=== PATIENT | male | born 1985 | race Hispanic/Latino ===

== ENCOUNTER 2019-07-22 17:04 | Emergency (ER) | payer SELFPAY ==
[~2019-07-22 17:04] MED LIST: INSU100V3 SQ; LISI10TA7 PO; NIAC250C2 PO; NPH,100V SQ; POTA99TA21 PO; PSYL3.4P5 PO; VITA1CAP85 PO
[2019-07-22] MEDS ORDERED: KETOROLAC TROMETHAMINE 60 MG/2 ML VIAL ONE (17:54)
[2019-07-22] MEDS ORDERED: DEXAMETHASONE SOD PHOSPHATE 10MG/ML 1ML VIAL ONE (17:54)
== END 2019-07-22 18:21 | disposition home or self-care (01) ==
LOC: EDH 17:04
DX: J11.1 Influenza due to unidentified influenza virus with other respiratory manifestations (principal); E11.9 Type 2 diabetes mellitus without complications; I10 Essential (primary) hypertension; Z88.8 Allergy status to other drugs, medicaments and biological substances; Z90.49 Acquired absence of other specified parts of digestive tract
CPT/HCPCS: 71046; 96372 ×2; 99284; J1100; J1885

== ENCOUNTER 2020-02-19 18:13 | Inpatient (IN) | payer SELFPAY ==
[2020-02-19 18:52] LABS: BASOPHILS % (AUTO) 0.6 % (0.0-5.0); EOSINOPHILS % (AUTO) 3.5 % (0.0-8.0); HEMATOCRIT 37.4 % (42-54); LYMPHOCYTES % (AUTO) 19.4 % (21.0-51.0); MEAN CORPUSCULAR HEMOGLOBIN 28.6 pg (27.0-33.0); MEAN CORPUSCULAR VOLUME 84.2 fL (79-99); MONOCYTES % (AUTO) 9.7 % (3.0-13.0); NEUTROPHILS % (AUTO) 66.2 % (40.0-77.0); PLATELET COUNT (AUTO) 307 K/uL (130-400); RED BLOOD CELL COUNT(AUTO) 4.44 MIL/uL (4.50-6.20); RED CELL DISTRIBUTION WIDTH 12.4 % (11.0-15.5); WHITE BLOOD COUNT (AUTO) 8.9 K/uL (4.8-10.8)
[2020-02-19 18:53] LABS: APPEARANCE,URINE Clear (CLEAR); BILIRUBIN,URINE Negative (NEGATIVE); COLOR,URINE Yellow (YELLOW); GLUCOSE, URINE (UA) >=1000 mg/dL (NEGATIVE); KETONES,URINE Negative (NEGATIVE); LEUKOCYTE ESTERASE ,URINE Negative (NEGATIVE); NITRATE,URINE Negative (NEGATIVE); OCCULT BLOOD,URINE Small (NEGATIVE); PROTEIN,URINE >=1000 mg/dL (NEGATIVE); UROBILINOGEN,URINE 0.2 mg/dL (0.2-1.0)
[2020-02-19 19:03] LABS: CREATININE 1.8 mg/dL (0.5-1.5); POTASSIUM 3.9 mmol/L (3.5-5.1)
[2020-02-19 19:07] LABS: ALBUMIN 2.7 g/dL (3.5-5.0); BILIRUBIN,TOTAL 0.3 mg/dL (0.2-1.0); TOTAL PROTEIN, SERUM 6.9 g/dL (6.0-8.3)
[2020-02-19 19:21] LABS: SQUAMOUS EPITHELIAL CELL,UR Rare /HPF (0-2); WBC,URINE 0-1 /HPF (0-1)
[2020-02-19 19:22] LABS: BACTERIA,URINE Few /HPF (None Seen)
[2020-02-19] MEDS ORDERED: ONDANSETRON HCL 4 MG/2 ML VIAL IV PRN (21:15)
[2020-02-19] MEDS ORDERED: DiphenhydrAMINE HCL 50 MG/ML VIAL IV PRN (21:15)
[2020-02-19] MEDS ORDERED: NITROGLYCERIN 0.4 MG SL TAB SL PRN (21:15)
[2020-02-19] MEDS ORDERED: ACETAMINOPHEN 325 MG TAB PO PRN ×2 (21:15)
[2020-02-19] MEDS ORDERED: GUAIFENESIN-DM 200/20 MG 10 ML PO PRN (21:15)
[2020-02-19] MEDS ORDERED: ZOLPIDEM TARTRATE 5 MG TAB PO PRN (21:15)
[2020-02-19] MEDS ORDERED: MAG HYDROX/AL HYDROX/SIMETH ES 30 ML SUSP UDCUP PO PRN (21:15)
[2020-02-19] MEDS ORDERED: LACTULOSE 20 GM/30 ML UDCUP PO PRN (21:15)
[2020-02-19] MEDS ORDERED: MAG HYDROX/AL HYDROX/SIMETH 30 ML, LIDOCAINE HCL 2% VISCOUS 30 ML, DIPHENHYDRAMINE HCL ... PO PRN ×3 (21:15)
[2020-02-19] MEDS ORDERED: MORPHINE SULFATE 4 MG/1ML SYG IV PRN (21:15)
[2020-02-19] MEDS ORDERED: MORPHINE SULFATE 2 MG/ML 1ML SYG IV PRN (21:15)
[2020-02-19] MEDS ORDERED: SODIUM CHLORIDE 0.9% 1000ML 3,000 ML IV SCH (21:30)
[2020-02-19] MEDS ORDERED: FAMOTIDINE 20MG TAB 20 MG TAB ONE (22:17)
[2020-02-19] MEDS ORDERED: HEPARIN SODIUM 5000UNIT/ML 1ML VIAL ONE (22:17)
[2020-02-19 23:09] LABS: CREATINE KINASE, TOTAL 197 U/L (21-232); MYOGLOBIN 66 ng/mL (10-92); TROPONIN I < 0.04 ng/mL (0.00-0.06)
[2020-02-20 06:51] LABS: BASOPHILS % (AUTO) 0.5 % (0.0-5.0); EOSINOPHILS % (AUTO) 4.4 % (0.0-8.0); HEMATOCRIT 34.4 % (42-54); LYMPHOCYTES % (AUTO) 23.9 % (21.0-51.0); MEAN CORPUSCULAR HEMOGLOBIN 28.3 pg (27.0-33.0); MEAN CORPUSCULAR HGB CONC 33.1 g/dL (32.0-36.0); MEAN CORPUSCULAR VOLUME 85.4 fL (79-99); MONOCYTES % (AUTO) 10.4 % (3.0-13.0); NEUTROPHILS % (AUTO) 60.2 % (40.0-77.0); PLATELET COUNT (AUTO) 283 K/uL (130-400); RED BLOOD CELL COUNT(AUTO) 4.03 MIL/uL (4.50-6.20); RED CELL DISTRIBUTION WIDTH 12.6 % (11.0-15.5)
[2020-02-20 07:22] LABS: ALBUMIN 2.2 g/dL (3.5-5.0); BILIRUBIN,TOTAL 0.3 mg/dL (0.2-1.0); CREATININE 1.3 mg/dL (0.5-1.5); MAGNESIUM 2.4 mg/dL (1.80-2.40); PHOSPHORUS 3.3 mg/dL (2.5-4.9); POTASSIUM 3.7 mmol/L (3.5-5.1); TOTAL PROTEIN, SERUM 5.7 g/dL (6.0-8.3)
[2020-02-20 07:29] LABS: CREATINE KINASE, TOTAL 143 U/L (21-232); MYOGLOBIN 65 ng/mL (10-92); TROPONIN I < 0.04 ng/mL (0.00-0.06)
[2020-02-20] MEDS ORDERED: INSULIN LISPRO 100 UNIT/ML 3ML SQ SCH (07:30)
[2020-02-20] MEDS ORDERED: ASPIRIN 325 MG TABLET PO SCH (09:00)
[2020-02-20] MEDS ORDERED: FAMOTIDINE/PF 20 MG/2 ML VIAL IV SCH (09:00)
[2020-02-20] MEDS ORDERED: HEPARIN SODIUM 5000UNIT/ML 1ML VIAL SQ SCH (09:00)
[2020-02-20] MEDS ORDERED: IOHEXOL-350 75 ML VIAL IV ONE (10:06)
[2020-02-20] MEDS ORDERED: FAMOTIDINE 20MG TAB 20 MG TAB ONE (10:21)
[2020-02-20] MEDS ORDERED: ASPIRIN 325 MG TABLET ONE (10:21)
[2020-02-20] MEDS ORDERED: HEPARIN SODIUM 5000UNIT/ML 1ML VIAL ONE (10:22)
--- NOTE | 2020-02-20 14:59 | NUR ---
CASANDRA NOTE/IA UNSUCCESSFUL UNABLE TO MEET WITH PATIENT FACE TO FACE, NEXT OF KIN CALLED. NO ANSWER WITH MOTHER, MARGARITA GARCIA [phone], VOICEMAIL LEFT. CM TO FOLLOW UP. Addendum: 02/20/20 at 1501 by ETHAN MOORE RN CM Amended: Links added.
[2020-02-20] MEDS ORDERED: INSU100I47 SQ (15:11)
--- NOTE | 2020-02-20 15:40 | NUR ---
CASANDRA NOTE PER DANA SUTTON, CHARGE NURSE FOR ED, PATIENT TO BE DISCHARGED HOME, NO NEEDS VERBALIZED. Addendum: 02/20/20 at 1542 by ETHAN MOORE RN CM Amended: Links added.
[2020-02-20 15:48] LABS: CREATINE KINASE, TOTAL 136 U/L (21-232); MYOGLOBIN 58 ng/mL (10-92); TROPONIN I < 0.04 ng/mL (0.00-0.06)
== END 2020-02-20 17:10 | disposition home or self-care (01) | DRG 392 ==
LOC: EDH 18:13 → EDHIP 18:14 → UNDOADMIN 21:09 → EDHIP 21:09
PROVIDERS: ADMIT Internal Medicine; ATTEND Internal Medicine
DX: R10.2 Pelvic and perineal pain (principal); N17.9 Acute kidney failure, unspecified; E11.9 Type 2 diabetes mellitus without complications; E78.5 Hyperlipidemia, unspecified; I10 Essential (primary) hypertension; Z90.49 Acquired absence of other specified parts of digestive tract; Z88.8 Allergy status to other drugs, medicaments and biological substances; Z86.19 Personal history of other infectious and parasitic diseases; Z72.0 Tobacco use
CPT/HCPCS: 36415; 71045; 74178; 76770; 80053; 81001; 82550; 82948; 83690; 83735; 83874; 84100; 84484; 85025; 93005; 93306; 93356; G0378; J1644; J7030; Q9967

== ENCOUNTER 2021-03-01 22:59 | Emergency (ER) | payer OTHER ==
[~2021-03-01] VITALS: Ht 162.6 cm; Wt 122.5 kg
[~2021-03-01 22:59] MED LIST changes: +INSU100I47 SQ; -INSU100V3 SQ; +LISI10TA24 PO; -LISI10TA7 PO; -NIAC250C2 PO; +[UNRECOGNIZED DRUG - CODE] PO
[2021-03-01 23:15] LABS: BASOPHILS % (AUTO) 0.7 % (0.0-5.0); EOSINOPHILS % (AUTO) 3.3 % (0.0-8.0); HEMATOCRIT 38.6 % (42-54); MEAN CORPUSCULAR HEMOGLOBIN 28.4 pg (27.0-33.0); MEAN CORPUSCULAR HGB CONC 33.7 g/dL (32.0-36.0); MEAN CORPUSCULAR VOLUME 84.5 fL (79-99); MONOCYTES % (AUTO) 10.9 % (3.0-13.0); NEUTROPHILS % (AUTO) 63.4 % (40.0-77.0); PLATELET COUNT (AUTO) 321 K/uL (130-400); RED BLOOD CELL COUNT(AUTO) 4.57 MIL/uL (4.50-6.20); RED CELL DISTRIBUTION WIDTH 12.3 % (11.0-15.5); WHITE BLOOD COUNT (AUTO) 9.8 K/uL (4.8-10.8)
[2021-03-01 23:27] LABS: INR 0.9 (0.85-1.15); PROTHROMBIN TIME 9.9 SEC (9.6-11.6)
[2021-03-01 23:28] LABS: PARTIAL THROMBOPLASTIN TIME 25.7 SEC (26.3-35.5)
[2021-03-01 23:31] LABS: ALBUMIN 1.9 g/dL (3.5-5.0); BILIRUBIN,TOTAL 0.2 mg/dL (0.2-1.0); CREATININE 2.1 mg/dL (0.5-1.5); POTASSIUM 4.5 mmol/L (3.5-5.1); TOTAL PROTEIN, SERUM 5.9 g/dL (6.0-8.3)
[2021-03-01 23:41] LABS: B-TYPE NATRIURETIC PEPTIDE 16 pg/mL (0-100)
[2021-03-02] MEDS ORDERED: 0.9%NACL 1000ML 1,000 ML IV ONE (01:00)
[2021-03-02] MEDS ORDERED: INSULIN HUMULIN R 100 UNIT/ML 3ML IV ONE (01:00)
[2021-03-02 01:34] LABS: APPEARANCE,URINE Clear (CLEAR); BILIRUBIN,URINE Negative (NEGATIVE); COLOR,URINE Yellow (YELLOW); GLUCOSE, URINE (UA) >=1000 mg/dL (NEGATIVE); KETONES,URINE Negative (NEGATIVE); LEUKOCYTE ESTERASE ,URINE Negative (NEGATIVE); NITRATE,URINE Negative (NEGATIVE); OCCULT BLOOD,URINE Small (NEGATIVE); PROTEIN,URINE >=1000 mg/dL (NEGATIVE); UROBILINOGEN,URINE 0.2 mg/dL (0.2-1.0)
[2021-03-02 01:43] LABS: BACTERIA,URINE None Seen /HPF (None Seen); WBC,URINE 0-1 /HPF (0-1); YEAST,URINE BUDDING None Seen /HPF (None Seen)
[2021-03-02 01:44] LABS: MUCUS,URINE Rare LPF (None Seen); SQUAMOUS EPITHELIAL CELL,UR Few /HPF (0-2)
[2021-03-02] MEDS ORDERED: AMOXICILLIN 500 MG CAPSULE PO ONE (02:00)
[2021-03-02 02:14] VITALS: BP 177/78
[2021-03-02 03:09] VITALS: BP 150/80
[2021-03-02] MEDS ORDERED: AMOX500C2 PO (04:34)
== END 2021-03-02 05:04 | disposition home or self-care (01) ==
LOC: EDH 22:59
DX: J02.0 Streptococcal pharyngitis (principal); E11.65 Type 2 diabetes mellitus with hyperglycemia; Z20.822 Contact with and (suspected) exposure to COVID-19; E78.00 Pure hypercholesterolemia, unspecified; I10 Essential (primary) hypertension; Z79.4 Long term (current) use of insulin; Z79.899 Other long term (current) drug therapy
CPT/HCPCS: 36415; 71045; 80053; 81001; 82550; 82948; 83880; 84484; 85025; 85610; 85730; 87635; 87804 ×2; 87880; 93005; 96361; 96374; 99285; C9803; J1815; J7030

== ENCOUNTER 2024-09-26 10:23 | Inpatient (IN) | payer BC ==
[~2024-09-26] VITALS: Ht 167.6 cm; Wt 121.7 kg
[2024-09-26] VITALS (15 sets, daily range): BP systolic 128–181; BP diastolic 58–89; PULSE 73–94; RESP 14–20; TEMP 98–98.1; O2SAT 97
[~2024-09-26 10:23] MED LIST changes: +BENZ200C53 PO; +CALC0.253 PO; +CARV12.511 PO; +CHOL100020 PO; +FERR210T PO; +FOLI0.8T22 PO; +HYDR25TA67 PO; +INSLAN SQ; +LEVO112C4 PO; -LISI10TA24 PO; +NIFE-40 PO; -NPH,100V SQ; -POTA99TA21 PO; +PRED5DRO25 OD; -PSYL3.4P5 PO; +ROSU40TA88 PO; +SUCR500T PO; +VITA-348 PO; -VITA1CAP85 PO; -[UNRECOGNIZED DRUG - CODE] PO
--- NOTE | 2024-09-26 10:29 | ERN ---
ED Note History of Present Illness Stated Complaint: SOB Chief Complaint: Shortness of Breath Time Seen by MD: 10:26 Dictation: PATIENT IS A 39-YEAR-OLD HEMODIALYSIS PATIENT COMING IN TODAY WITH SHORTNESS A BREATH AND GENERALIZED BODY WEAKNESS ONSET TWO DAYS AGO. HE STATES HE HAD HEMODIALYSIS YESTERDAY. STATES THEY PULLED OFF5 L HOWEVER HE IS STILL FEELING SHORT OF BREATH AND WEAK. NO CHEST PAIN NO BACK PAIN. LEFT FOREARM FISTULA WITH GOOD THRILL AND BRUIT NOTED. NO FEVER NO CHILLS. NEPHROLOGISTS HIS DOCTOR ASHLEIGH Allergies: Coded Allergies: atorvastatin (Verified Allergy, Unknown, 07/22/16) metformin (Verified Allergy, Unknown, 07/22/16) Home Meds Reported Medications Prednisolone Acetate/Pf (Prednisolone Acet 1% Eye Drop) 1 % Drops.susp, 1 DROP OD BID for 30 Days, #5 ML 0 Refills 06/05/24 Cholecalciferol (Vitamin D3) (Vitamin D3) 25 Mcg (1000 Unit) Tablet, 1 TAB PO DAILY for 30 Days, #30 TAB 0 Refills 06/05/24 Vitamin E Mixed (Vitamin E) 400 Unit Capsule, 400 UNIT PO DAILY, CAP 06/05/24 Ferric Citrate (Ferric Citrate) 210 Mg Iron Tablet, 1 TAB PO TIDMEALS for 30 Days, #180 TAB 0 Refills 06/05/24 Levothyroxine Sodium (Levothyroxine) 112 Mcg Capsule, 1 CAP PO DAILY for 30 Days, #30 CAP 0 Refills 06/05/24 Benzonatate (Benzonatate) 200 Mg Capsule, 100 MG PO DAILY PRN for COUGH/COLD SYMPTOMS, CAP 06/05/24 Carvedilol (Carvedilol) 12.5 Mg Tablet, 1 TAB PO BID for 30 Days, #60 TAB 0 Refills 06/05/24 Hydralazine HCl (Hydralazine HCl) 25 Mg Tablet, 1 TAB PO TID for 30 Days, #90 TAB 0 Refills 06/05/24 Nifedipine (Nifedipine ER) 30 Mg Tab.er.24, 1 TAB PO DAILY for 30 Days, #30 TAB 0 Refills 06/05/24 Sucroferric Oxyhydroxide (Velphoro) 500 Mg Iron Tab.chew, 1 TAB PO TID for 30 Days, #90 TAB 0 Refills 06/05/24 Folic Acid/Vitamin B Comp W-C (Aura-Kaz Tablet) 0.8 Mg Tablet, 1 TAB PO DAILY for 30 Days, #30 TAB 0 Refills 06/05/24 Calcitriol (Calcitriol) 0.25 Mcg Capsule, 0.25 MCG PO DAILY, CAP 06/05/24 Rosuvastatin Calcium (Rosuvastatin Calcium) 40 Mg Tablet, 1 TAB PO HS for high cholesterol for 30 Days, #30 TAB 0 Refills 06/05/24 Insulin Glargine,Hum.rec.anlog (Lantus) 100 Unit/Ml Inj, 15 UNITS SQ HS, ML 06/05/24 Insulin Glargine,Hum.rec.anlog (Lantus) 100 Unit/Ml Inj, 15 UNITS SQ NOON, ML 06/05/24 Insulin Aspart (Insulin Aspart Flexpen) 100 Unit/Ml (3 Ml) Insuln.pen, 30 UNIT SQ TIDAC, SYRINGE 06/05/24 Past Medical History Past Medical History: Renal Disese, Renal Failure Surgical History: Other RN Note Reviewed/Agreed w/PFSH: Yes Review of System Dictation CONSTITUTIONAL: NEGATIVE EXCEPT FOR HPI WEAK HEAD/FACE: NEGATIVE EXCEPT FOR HPI EENT: NEGATIVE EXCEPT FOR HPI RESPIRATORY: NEGATIVE EXCEPT FOR HPI SOB GASTROINTESTINAL/ABDOMINAL: NEGATIVE EXCEPT FOR HPI GENITOURINARY: NEGATIVE EXCEPT FOR HPI MUSCULOSKELETAL: NEGATIVE EXCEPT FOR HPI INTEGUMENTARY: NEGATIVE EXCEPT FOR HPI NEUROLOGICAL/PSYCH: NEGATIVE EXCEPT FOR HPI HEMATOLOGIC/LYMPHATIC: NEGATIVE EXCEPT FOR HPI ALL SYSTEMS NEGATIVE, EXCEPT NOTED ABOVE. 13 POINT REVIEW OF SYSTEMS ASSESSED AND ALL NEGATIVE EXCEPT FOR ABOVE. Initial Vital Sign VS Vital Signs Date Time Temp Pulse Resp B/P (MAP) Pulse Ox O2 Delivery O2 Flow Rate FiO2 09/26/24 10:26 98.1 81 20 114/64 97 0 09/26/24 12:02 Room Air* 21 Physical Exam Dictation VITAL SIGNS REVIEWED GENERAL APPEARANCE: ALERT, ORIENTED X 3, NO ACUTE DISTRESS, WELL DEVELOPED, NOURISHED. MORBID OBESITY HEAD AND FACE: NON-TRAUMATIC. EYES: PERRL, PINK CONJUNCTIVAS, EYELID NO TRAUMA, ANTERIOR CHAMBER WITH ARCUS SENILIS. EARS: PINNAS INTACT AND NO SIGNS OF TRAUMA OR ERYTHEMA EAR CANALS CLEAR AND NO DISCHARGE TM NO ERYTHEMA NOSE: NO DISCHARGE, NO BLEEDING. OROPHARYNX: MOUTH NORMAL, TONGUE PINK, PHARYNX CLEAR,NO ERYTHEMA, TONSILS NO EXUDATES, NO ABSCESSES NOTED, MUCOUS MEMBRANE MOIST NECK: SUPPLE, NON-TENDER, NO THYROMEGALY, NO MASSES, NO JVD, NO BRUITS BREAST:DEFERRED CHEST:NO TENDERNESS, NO CREPITUS, NO PARADOXICAL MOVEMENT, NO RETRACTIONS LUNGS:CLEAR, WELL-VENTILATED, SYMMETRIC, NO RALES, NO WHEEZING, NO RHONCHI, NO STRIDOR, GOOD BREATH SOUNDS BILATERALLY HEART: REGULAR RATE, REGULAR RHYTHM, NO MURMUR, NO GALLOPS VASCULAR: NO PERIPHERAL EDEMA, LEFT FOREARM FISTULA WITH GOOD THRILL AND BRUIT NOTED ABDOMEN: SOFT, POSITIVE BOWEL SOUNDS, NONDISTENDED, NO GUARDING, NONTENDER, NO REBOUND, NO MASSES NO HEPATOMEGALY, NO SPLENOMEGALY, NO HEART'S SIGN, NO HERNIAS. RECTAL: DEFERRED GENITAL: DEFERRED NEUROLOGICAL: NORMAL SPEECH, MOTOR FUNCTION INTACT, SENSORY FUNCTION INTACT MUSCULOSKELETAL: NECK NONTENDER, FULL RANGE OF MOTION, BACK NONTENDER, FULL RANGE OF MOTION, EXTREMITIES: NONTENDER, FULL RANGE OF MOTION SKIN: COLOR PINK, DRY, NO TURGOR, NO RASH, NO LACERATIONS, NO ABRASIONS, NO CONTUSIONS. LYMPHATIC: DEFERRED Results (Laboratory/Radiology) Laboratory/Radiology Laboratory Tests Test 09/26/24 10:42 White Blood Count 9.1 K/uL (4.8-10.8) Red Blood Count 3.37 MIL/uL (4.50-6.20) L Hemoglobin 10.3 g/dL (14.0-18.0) L Hematocrit 31.6 % (42-54) L Mean Corpuscular Volume 93.8 fL (79-99) Mean Corpuscular Hemoglobin 30.6 pg (27.0-33.0) Mean Corpuscular Hemoglobin Concent 32.6 g/dL (32.0-36.0) Red Cell Distribution Width 13.5 % (11.0-15.5) Platelet Count 256 K/uL (130-400) Mean Platelet Volume 10.8 fL (7.5-10.5) H Immature Granulocyte % (Auto) 0.6 % (0-1) Neutrophils (%) (Auto) 74.5 % (40.0-77.0) Lymphocytes (%) (Auto) 10.5 % (21.0-51.0) L Monocytes (%) (Auto) 10.3 % (3.0-13.0) Eosinophils (%) (Auto) 3.5 % (0.0-8.0) Basophils (%) (Auto) 0.6 % (0.0-5.0) Neutrophils # (Auto) 6.8 K/uL (1.8-7.7) Lymphocytes # (Auto) 1.0 K/uL (1.0-4.8) Monocytes # (Auto) 0.9 K/uL (0.1-1.0) Eosinophils # (Auto) 0.32 K/uL (0.00-0.70) Basophils # (Auto) 0.05 K/uL (0.00-0.20) Absolute Immature Granulocyte (auto 0.05 K/uL (0-1) Nucleated Red Blood Cells 0.0 % (0.0-0.19) Sodium Level 134 mmol/L (136-145) L Potassium Level 5.3 mmol/L (3.5-5.1) H Chloride Level 96 mmol/L (101-111) L Carbon Dioxide Level 28 mmol/L (21-32) Blood Urea Nitrogen 48 mg/dL (7-18) H Creatinine 8.8 mg/dL (0.5-1.3) *H Glomerular Filtration Rate Calc 7 mL/min (>90) Random Glucose 253 mg/dL (70-105) H Total Calcium 8.1 mg/dL (8.5-10.1) L Troponin I High Sensitivity 654 ng/L (4-75) *H Labs Reviewed?: Yes EKG Comment: EKG SINUS RHYTHM/HEART RATE 75/RIGHT AXIS DEVIATION/NONSPECIFIC ST CHANGES ED Course ED Course Orders Procedure Category Date Status Time Cbc With Differential LAB 09/26/24 Complete 10:27 Troponin I High LAB 09/26/24 Complete Sensitivity 10:27 12 Lead Ekg Tracing- EKG 09/26/24 Complete Technical 10:27 Chest 1vw RAD 09/26/24 Resulted 10:27 Basic Metabolic Panel LAB 09/26/24 Complete 10:27 Aspirin 325mg Tab PHA 09/26/24 Logged (Aspirin 325mg Tab) 12:00 Sodium Polystyr Sulf PHA 09/26/24 Logged 15gm (Kayexalate 15 12:00 Albuterol 0.083% PHA 09/26/24 Logged 2.5mg/3ml (Proventil 12:00 Nephrology Consult CONPHYSVC 09/26/24 Transmitted 11:53 Edm Admit Bridge Order ADM 09/26/24 Transmitted 11:55 Current Medications Medications (Trade) Dose Ordered Sig/Kay Route PRN Reason Start Time Stop Time Status Last Admin Dose Admin Albuterol Sulfate (Proventil 0.083% 2.5mg/3ml) 5 mg ONCE ONCE IH 09/26/24 12:00 09/26/24 12:01 UNV Aspirin (Aspirin 325mg Tab) 325 mg ONCE ONCE PO 09/26/24 12:00 09/26/24 12:01 UNV Sodium Polystyrene Sulfonate (kayEXALate 15 GM/60 ML) 15 gm ONCE ONCE PO 09/26/24 12:00 09/26/24 12:01 UNV Vital Signs Date Time Temp Pulse Resp B/P (MAP) Pulse Ox O2 Delivery O2 Flow Rate FiO2 09/26/24 12:02 98.1 81 20 164/64 97 Room Air* 0 21 09/26/24 10:26 98.1 81 20 114/64 97 0 1145/EKG SHOWS ST CHANGES IN ANTERIOR LEADS TWO AND THREE. TROPONIN IS 574.0 REVIEW OF LITERATURE SHOWS HE HAS HAD NO TROPONINS THAT HIGH IN THE PAST. WE WILL ADMINISTER ASPIRIN, PATIENT DENIES ANY CHEST PAIN AT THIS TIME STATES HE JUST FEELS WEAK. WE WILL PAGED FOR MILD HYPERKALEMIA AND FLUID OVERLOAD, WE WILL HAVE PATIENT ADMITTED TO THE HOSPITAL. 1155/SPOKE WITH AND REVIEWED EKG CHEST X-RAY LABS AND INTERVENTIONS FOR HYPERKALEMIA. ADDITIONALLY HE IS AWARE I HAVE PAGED , FOR CONSULTATION AND ADDITIONAL HEMODIALYSIS DUE TO FLUID OVERLOAD. HEART Score Response (Comments) Value EKG: Repolarization changes 1 Risk Factors: 3+ risk factors (+2) 2 Initial Troponin: >3x Normal Limit (+2) 2 Total 5 Medical Decision Making MDM MDM: DIFFERENTIAL DIAGNOSIS: ACS/AMI/FLUID OVERLOAD/ELECTROLYTE IMBALANCE/DEHYDRATION/PNEUMONIA/BRONCHITIS/PLEURAL EFFUSION RATIONALE: TESTS CONSIDERED AND ORDERED SECONDARY TO SHARED DECISION MAKING INCLUDE: LABS, ECG AND RADIOLOGY PREVIOUS OUTSIDE RECORDS REVIEWED: OLD ER VISITS. REVIEWED RISK OF COMPLICATION AND/OR MORBIDITY OR MORTALITY OF PATIENT MANAGEMENT: MODERATE MEDICATIONS-PER MEDICATION RECONCILIATION NEED FOR HOSPITALIZATION: PATIENT DOES MEET CRITERIA FOR HOSPITALIZATION. PATIENT WILL NEED ADDITIONAL DIALYSIS FOR FLUID OVERLOAD AND CARDIAC CONSULTATION SECONDARY TO ELEVATED TROPONIN ABNORMAL EKG NEED FOR EMERGENCY MAJOR/MINOR SURGERY: NO THERE ARE NO SOCIAL CONCERNS WITH THIS PATIENT. PRESCRIPTION DRUG MANAGEMENT PRESCRIPTIONS WILL INCLUDE SYMPTOMATIC CARE PATIENT'S PRIOR EXTERNAL MEDICAL RECORDS FROM OTHER ER VISITS WERE REVIEWED BY ME INDICATED. PRIOR TESTING AND RESULTS FROM PREVIOUS VISITS WERE REVIEWED. PRIOR TESTS WERE TAKEN INTO ACCOUNT WITH MEDICAL DECISION MAKING AND RESOURCE UTILIZATION, INDEPENDENT HISTORIAN/HISTORIANS WERE USED TO OBTAIN COMPLETE MEDICAL HISTORY. I INDEPENDENTLY INTERPRETED THE TEST THAT WERE PERFORMED, RESULTS WERE REVIEWED BY ME AND CONSIDERED FINDINGS ON RADIOLOGY IF ORDERED. MEDICAL MANAGEMENT AND EXAMINATION INTERPRETATION DISCUSSIONS WERE HAD BY ME WITH OTHER QUALIFIED HEALTHCARE PROFESSIONALS INDICATED FOR THE PATIENT'S CARE. DX & DISP Disposition: Inpatient Decision to Admit Time: 11:47 Departure Impression: Primary Impression: Fluid overload Additional Impressions: Hyperkalemia, Elevated troponin level not due to acute coronary syndrome, Anemia of chronic kidney failure, Uncontrolled diabetes mellitus Critical Time: 30 minutes (Critical Care Procedure NoteAuthorized and Performed by: meTotal critical care time: Approximately 36 minutesDue to a high probability of clinically significant, life threatening deterioration, the patient required my highest level of preparedness to intervene emergently and I personally spent this critical care time directly and personally managing the patient. This critical care time included obtaining a history; examining the patient; pulse oximetry; ordering and review of studies; arranging urgent treatment with development of a management plan; evaluation of patient's response to treatment; frequent reassessment; and, discussions with other providers.This critical care time was performed to assess and manage the high probability of imminent, life-threatening deterioration that could result in multi-organ failure. It was exclusive of separately billable procedures and treating other patients and teaching time.Please see MDM section and the rest of the note for further information on patient assessment and treatment.) Condition: Stable Referrals: TARAS PAINTER DO (PCP) Time of Disposition: 11:47 I have reviewed the case, and I agree with, Diagnosis and Plan I performed a substantive portion of the visit. I have reviewed and personally made and approve the management plan that is documented in the notes by myself with KEITH/resident. I acknowledged full responsibility for the patient's management plan. TOMA FINNEY NP Sep 26, 2024 10:29 CALEB BOWENS DO Sep 26, 2024 12:04
--- NOTE | 2024-09-26 10:52 | EKG ---
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
[2024-09-26 10:57] LABS: BASOPHILS # (AUTO) 0.05 K/uL (0.00-0.20); BASOPHILS % (AUTO) 0.6 % (0.0-5.0); EOSINOPHILS # (AUTO) 0.32 K/uL (0.00-0.70); EOSINOPHILS % (AUTO) 3.5 % (0.0-8.0); HEMATOCRIT 31.6 % (42-54); IMMATURE GRANULOCYTE ABSOLUTE 0.05 K/uL (0-1); LYMPHOCYTES % (AUTO) 10.5 % (21.0-51.0); MEAN CORPUSCULAR HEMOGLOBIN 30.6 pg (27.0-33.0); MEAN CORPUSCULAR HGB CONC 32.6 g/dL (32.0-36.0); MEAN CORPUSCULAR VOLUME 93.8 fL (79-99); MONOCYTES # (AUTO) 0.9 K/uL (0.1-1.0); MONOCYTES % (AUTO) 10.3 % (3.0-13.0); NEUTROPHILS # (AUTO) 6.8 K/uL (1.8-7.7); NEUTROPHILS % (AUTO) 74.5 % (40.0-77.0); PLATELET COUNT (AUTO) 256 K/uL (130-400); RED BLOOD CELL COUNT(AUTO) 3.37 MIL/uL (4.50-6.20); RED CELL DISTRIBUTION WIDTH 13.5 % (11.0-15.5); WHITE BLOOD COUNT (AUTO) 9.1 K/uL (4.8-10.8)
[2024-09-26 11:05] LABS: POTASSIUM 5.3 mmol/L (3.5-5.1)
[2024-09-26 11:17] LABS: CREATININE 8.8 mg/dL (0.5-1.3)
--- NOTE | 2024-09-26 11:42 | HMCIMG ---
Exam Type: CHEST 1VW Clinical Information: SHORTNESS A BREATH. HISTORY OF ESRD WITH HEMODIALYSIS Comparison: None Findings: The lungs are clear of infiltrates. The heart is normal in size. The bony and soft tissue structures of the chest are unremarkable. Impression: Clear lungs.
[2024-09-26] MEDS ORDERED: acetaMINOPHEN 500 MG TABLET PO PRN (12:30)
[2024-09-26] MEDS ORDERED: hydrALAZine 20MG/ML VIAL IV PRN (12:30)
--- NOTE | 2024-09-26 12:45 | HP ---
[facility] PH[facility] Date of Service: Sep 26, 2024 Time of Service: 12:36 HISTORY OF PRESENT ILLNESS: DATE OF SERVICE: 09/26/2024 This is a 39-year-old male with past medical history of hypertension, hyperlipidemia, ESRD, diabetes mellitus type 2 presented to the hospital secondary to generalized fatigue, shortness of breath. Patient states after getting dialysis yesterday he has been feeling short of breath. He denies any cough, fevers, chills, abdominal pain, arthralgia, myalgia. He also complains of constipation with abdominal distention. He had one BM yesterday which was small amount. He has been taking lactulose at. Additionally complained of pain in the bilateral flank area which he felt was secondary to kidney stones. He denies any active chest pain, paresthesias, jaw pain, neck pain. He stated that he saw Dr. Gamble around a month ago and had a possible heart catheterization which per patient was noted to be unremarkable. He denied having any stents placed during the procedure. Denied any falls, syncopal episode. He is fairly active at home and has been ambulating. Denies any chest pain with exertion and denied any history of blood clots. Labs were remarkable for white count of 9.1, hemoglobin was 10.3, platelet count was 256 K co, sodium was 134, potassium was 5.3, creatinine was 8.8, troponin was noted to be 654 Chest x-ray showed no acute infiltrates. REVIEW OF SYSTEMS CONSTITUTIONAL: Denies fevers, chills, or night sweats. No unintentional weight loss reported. Positive for generalized fatigue NEUROLOGICAL: Denies headache, amaurosis fugax, motor weakness, sensory deficit, vertigo/spinning sensation, gait abnormalities, or tremors. ENT: No hearing loss, otalgia, otorrhea, rhinitis, rhinorrhea, hoarseness, or sore throat. CARDIOVASCULAR: Denies any exertional angina, dyspnea on exertion, orthopnea, paroxysmal nocturnal dyspnea, palpitations, life-threatening arrhythmias, claudication. PULMONARY: Positive for shortness of breath. Denied any cough, sputum producti on. SLEEP: Denies morning headaches, daytime somnolence or napping. Denies difficulty falling asleep, staying asleep, waking from sleep. Denies knowledge of snoring. GASTROINTESTINAL: Denies any type of dysphagia to either liquids or solids. Denies nausea, vomiting, pyrosis, early satiety, abdominal pain, diarrhea, constipation, or changes in stool consistency or caliber. Denies coffee-ground emesis, hematemesis, hematochezia, or melanotic stools. GENITOURINARY: Denies frequency, urgency, nocturia, hematuria or incontinence (Storage/Irritative symptoms.) Low urinary stream, straining to void, urinary intermittency or hesitancy, splitting of the voiding stream, terminal dribbling. ENDOCRINOLOGIC: Denies polyuria, polydipsia, polyphagia or heat/cold intolerances. HEMATOLOGIC: Denies thrombophilia/previous clots, or coagulopathy/bleeding disorders. ONCOLOGIC: Denies personal history of malignancy. DERMATOLOGIC: Denies rashes or pruritus. PSYCHIATRIC: Denies any suicidal or homicidal ideation. Denies hallucinations. PAST MEDICAL HISTORY: Hypertension, hyperlipidemia, ESRD, diabetes mellitus type 2 PAST SURGICAL HISTORY: History of appendectomy, history of PermCath placement, history of AV access PAST SOCIAL HISTORY: Denied any smoking, alcohol, drug use FAMILY HISTORY: Denied any pertinent family history Coded Allergies: atorvastatin (Verified Allergy, Unknown, 07/22/16) metformin (Verified Allergy, Unknown, 07/22/16) PHYSICAL EXAM GENERAL APPEARANCE: The patient is awake, alert, and oriented, in no acute cardiopulmonary distress. NEUROLOGICAL: Cranial nerves II-XII grossly intact. Motor is 5/5 in bilateral upper and lower extremities proximal to distal. No sensory deficits. HEENT: Face is symmetric. Pupils are equal and reactive. Extraocular movements are intact. NECK: Supple. No JVD. No thyromegaly. No submental, submandibular, pre- /postauricular, occipital or supraclavicular lymphadenopathy. CHEST: Normal chest expansion. No Telemetry. LUNGS: Absence of any rales, rhonchi or any wheezing. CARDIOVASCULAR: Regular. S1 and S2 normal. No appreciable rubs, murmurs or gallops. ABDOMEN: Soft, nontender, and mildly distended. There is no rebound, voluntary guarding, or rigidity. : Deferred. No Lopez. EXTREMITIES: 1+ pitting edema in the lower extremity and not cyanotic. No clubbing. Good capillary refill. SKIN: No skin breakdown. Vital Sign (Last 24 Hours) 09/26/24 12:02 Temp 98.1 Pulse 81 Resp 20 B/P (MAP) 164/64 Pulse Ox 97 O2 Delivery Room Air* O2 Flow Rate 0 FiO2 21 LABS: Laboratory: Test 09/26/24 10:42 Range/Units White Blood Count 9.1 4.8-10.8 K/uL Red Blood Count 3.37 L 4.50-6.20 MIL/uL Hemoglobin 10.3 L 14.0-18.0 g/dL Hematocrit 31.6 L 42-54 % Mean Corpuscular Volume 93.8 79-99 fL Mean Corpuscular Hemoglobin 30.6 27.0-33.0 pg Mean Corpuscular Hemoglobin Concent 32.6 32.0-36.0 g/dL Red Cell Distribution Width 13.5 11.0-15.5 % Platelet Count 256 130-400 K/uL Mean Platelet Volume 10.8 H 7.5-10.5 fL Immature Granulocyte % (Auto) 0.6 0-1 % Neutrophils (%) (Auto) 74.5 40.0-77.0 % Lymphocytes (%) (Auto) 10.5 L 21.0-51.0 % Monocytes (%) (Auto) 10.3 3.0-13.0 % Eosinophils (%) (Auto) 3.5 0.0-8.0 % Basophils (%) (Auto) 0.6 0.0-5.0 % Neutrophils # (Auto) 6.8 1.8-7.7 K/uL Lymphocytes # (Auto) 1.0 1.0-4.8 K/uL Monocytes # (Auto) 0.9 0.1-1.0 K/uL Eosinophils # (Auto) 0.32 0.00-0.70 K/uL Basophils # (Auto) 0.05 0.00-0.20 K/uL Absolute Immature Granulocyte (auto 0.05 0-1 K/uL Nucleated Red Blood Cells 0.0 0.0-0.19 % Sodium Level 134 L 136-145 mmol/L Potassium Level 5.3 H 3.5-5.1 mmol/L Chloride Level 96 L 101-111 mmol/L Carbon Dioxide Level 28 21-32 mmol/L Blood Urea Nitrogen 48 H 7-18 mg/dL Creatinine 8.8 *H 0.5-1.3 mg/dL Glomerular Filtration Rate Calc 7 >90 mL/min Random Glucose 253 H 70-105 mg/dL Total Calcium 8.1 L 8.5-10.1 mg/dL Troponin I High Sensitivity 654 *H 4-75 ng/L Current Medications Medications (Trade) Dose Ordered Sig/Kay Route PRN Reason Start Time Stop Time Status Last Admin Dose Admin Acetaminophen (TYLenol 500MG TAB) 500 mg Q6H PRN PO MILD PAIN (1-3) 09/26/24 12:30 10/26/24 12:29 Aspirin (Aspirin 81mg Chew Tab) 81 mg DAILY PO 09/27/24 09:00 10/27/24 08:59 Heparin Sodium (Porcine) (HEParin 5,000 UNIT VIAL) 5,000 unit Q12H SQ 09/26/24 21:00 10/26/24 20:59 Hydralazine HCl (APRESOLine 20MG INJ) 10 mg Q6H PRN IV ADMINISTER FOR SBP > 180 09/26/24 12:30 10/26/24 12:29 DIAGNOSTICS / RADIOLOGY: [ ] ASSESSMENT: Hyperkalemia Troponin elevation likely type 2 IA from demand mismatch and ESRD status Shortness of breaths differential secondary to volume overload from ESRD ESRD on HD MWF Hypertension Hyperlipidemia Diabetes mellitus type 2 with associated hyperglycemia Obesity PLAN: - patient to be admitted to PCCU -in reference to shortness of breadth. Patient is currently saturating 97% on room air. We will closely observe. We will check COVID and flu. We will request consultation with Nephrology for evaluation of dialysis. -in reference to troponin elevation. We will trend troponins q.6 hours. Obtain echocardiogram. We will request consultation with Cardiology. We will request records from Dr. Tye nath. Obtain echocardiogram -obtain home medications which will be reconciled once available -patient will be started on sliding scale insulin -check TSH, A1c, CK, BNP -further orders per hospitalization course Advanced Care Planning Which of the following were discussed: Hospice care: Yes __ No _x_ Therapeutic options: Yes __ No __ Advance directives: Yes __ No __ Other discussions: Pt is full code Discussed with who?: patient (Patient, family or surrogates) Voluntary nature of this service was explained to the patient? Yes _x_ No __ Amount of time spent: 25 minutes NIKI Lau MD, MD Sep 26, 2024 12:45
[2024-09-26] MEDS: ASPIRIN 325MG TAB PO ONE (12:48)
[2024-09-26] MEDS: kayEXALate 15GM/60ML PO ONE (12:48)
[2024-09-26] MEDS: ALBUTEROL 0.083% 2.5 MG/3 ML INH IH ONE (13:16)
[2024-09-26 13:21] LABS: SARS-CoV-2, RNA, NAAT NEGATIVE SARS CoV-2 (NEGATIVE)
[2024-09-26 13:24] LABS: INFLUENZA TYPE A Negative For Type A (NEGATIVE); INFLUENZA TYPE B Negative For Type B (NEGATIVE)
[2024-09-26 13:25] LABS: HEMOGLOBIN A1C 9.4 % (4.0-6.0)
[2024-09-26 13:27] LABS: ALBUMIN 3.2 g/dL (3.5-5.0); BILIRUBIN,DIRECT 0.1 mg/dL (0.0-0.3); BILIRUBIN,TOTAL 0.5 mg/dL (0.2-1.0); TOTAL PROTEIN, SERUM 7.6 g/dL (6.0-8.3)
--- NOTE | 2024-09-26 13:28 | HMCIMG ---
Exam Type: CT ABDOMEN/PELVIS W/O CONTRAST Clinical Information: BIlateral flank pain, constipation Comparison: None CT Dose Index (CTDI): 10.20 mGy Dose Length Product (DLP): 530.00 total mGy-cm PROTOCOL: Routine noncontrast helical scanning of the abdomen and pelvis was performed at 5mm collimation. Findings: No evidence of nephro or ureterolithiasis is found. No hydronephrosis or ureteral dilatation is seen. The lung bases are clear. The stomach is unremarkable. It shows no wall thickening. No gross ulceration is seen. It is not overly distended. There are no surrounding inflammatory changes. No wall lesions are identified to suggest cancer. The spleen is unremarkable. It is not enlarged. The pancreas shows normal anatomy. It is not fatty replaced. It shows no lesions. The pancreatic duct is not dilated. The gallbladder is unremarkable. It shows no cholelithiasis. The gallbladder wall is normal in thickness. There is no pericholecystic fluid. The is no acute or chronic inflammation noted. The adrenal glands are unremarkable. There is no enlargement. No lesions are noted. The liver is unremarkable. It shows no focal masses. The appendix is unremarkable. It shows no evidence of inflammation. No appendicolith is seen. The small bowel is unremarkable. There is no evidence of dilatation to suggest obstruction. No evidence of adynamic ileus is seen. There is no small bowel wall thickening to suggest enteritis. The colon is unremarkable. The urinary bladder is unremarkable. There is no wall thickening to suggest tumor or inflammation. There are no intraluminal calculi. There are no diverticula. There is no evidence of chronic bladder outlet obstruction. There is no evidence of urinary bladder distention to suggest urinary retention. The other pelvic structures are unremarkable. The bony and vascular structures are unremarkable for the patient's age. IMPRESSION: NEGATIVE CT SCAN OF THE ABDOMEN AND PELVIS. NO RENAL STONES. NO ACUTE PATHOLOGY OR INFLAMMATION SEEN. This study was performed using dose reduction techniques to include automated exposure control and/or adjustment of the mA and/or kV according to patient size.
--- NOTE | 2024-09-26 14:15 | NUR ---
PER DR. CHAMBERS, HE SPOKE WITH DR. SOTELO WHO STATES THE PT WILL BE GOING TO DIALYSIS TODAY. TO HAVE THE PT CONSENTED AND CALL THE DIALYSIS NURSE.
--- NOTE | 2024-09-26 14:20 | NUR ---
CONSENT WAS OBTAINED FOR DIALYSIS, DIALYSIS NURSE WAS CONTACTED AND ADVISED PT IN ED FOR DIALSYSIS PER DR. SOTELO
[2024-09-26] MEDS: hydrALAZine 25MG TABLET PO SCH (15:00)
--- NOTE | 2024-09-26 15:14 | CONS ---
NEPHROLOGY CONSULTATION NOTE Date/Time Patient Seen: Sep 26, 2024 Reason for Consultation: Generalized fatigue, shortness of breath, fluid overload, noncompliance, end-stage renal disease HISTORY OF PRESENT ILLNESS: This is a 39-year-old male with a past medical history of end-stage renal disease on hemodialysis Wednesday, diabetes mellitus type 2, hypertension, anemia, hyperlipidemia, hypothyroidism and obesity He presented to the emergency room with complaints of generalized fatigue and shortness of breath. He continues to be noncompliant with fluid restriction and dialysis sessions. He was seen in the emergency room,, continues to complain of shortness of breath Family at the bedside Prognosis remains guarded REVIEW OF SYSTEMS: GENERAL: Positive for shortness of breath and generalized weakness NEUROLOGIC: Negative for any blurry vision, blind spots, double vision, facial asymmetry, dysphagia, dysarthria, hemiparesis, hemisensory deficits, vertigo, ataxia. HEENT: Negative for any head trauma, neck trauma, neck stiffness, photophobia, phonophobia, sinusitis, rhinitis. CARDIAC: Negative for any chest pain, dyspnea on exertion, paroxysmal nocturnal dyspnea, peripheral edema. PULMONARY: Negative for any shortness of breath, wheezing, COPD, or TB exposure. GASTROINTESTINAL: Negative for any abdominal pain, nausea, vomiting, bright red blood per rectum, melena. GENITOURINARY: Negative for any dysuria, hematuria, incontinence. INTEGUMENTARY: Negative for any rashes, cuts, insect bites. RHEUMATOLOGIC: Negative for any joint pains, photosensitive rashes, history of vasculitis or kidney problems. HEMATOLOGIC: Negative for any abnormal bruising, frequent infections or bleeding. PAST MEDICAL HISTORY: End-stage renal disease Hypertension Diabetes mellitus type 2 Anemia Hyperlipidemia PAST SURGICAL HISTORY: Appendectomy Left AV fistula PAST SOCIAL HISTORY: Denies use of alcohol, tobacco or illicit drugs FAMILY HISTORY: Noncontributory PHYSICAL EXAM: GENERAL: Alert and oriented x 3. No acute distress. Well-nourished. EYES: EOMI. Anicteric. HENT: Moist mucous membranes. No scleral icterus. No cervical lymphadenopathy. LUNGS: Clear to auscultation bilaterally. No accessory muscle use. CARDIOVASCULAR: Regular rate and rhythm. No murmur. No JVD. ABDOMEN: Soft, non-tender and non-distended. No palpable masses. EXTREMITIES: 2+ edema. Non-tender. SKIN: No rashes or lesions. Warm. NEUROLOGIC: No focal neurological deficits. CN II-XII grossly intact, but not individually tested. PSYCHIATRIC: Cooperative. Appropriate mood and affect. MEDICATIONS: [ ] Current Medications Medications (Trade) Dose Ordered Sig/Kay Route PRN Reason Start Time Stop Time Status Last Admin Dose Admin Acetaminophen (TYLenol 500MG TAB) 500 mg Q6H PRN PO MILD PAIN (1-3) 09/26/24 12:30 10/26/24 12:29 Aspirin (Aspirin 81mg Chew Tab) 81 mg DAILY PO 09/27/24 09:00 10/27/24 08:59 Heparin Sodium (Porcine) (HEParin 5,000 UNIT VIAL) 5,000 unit Q12H SQ 09/26/24 21:00 10/26/24 20:59 Hydralazine HCl (APRESOLine 20MG INJ) 10 mg Q6H PRN IV ADMINISTER FOR SBP > 180 09/26/24 12:30 10/26/24 12:29 Hydralazine HCl ([id number] TAB) 25 mg TID PO 09/26/24 15:00 10/26/24 14:59 Hydralazine HCl ([id number] TAB) 25 mg TID PO 09/26/24 21:00 09/26/24 14:43 DC Insulin Human Regular (humuLIN R 100 UNIT/ML 3ML) INSULIN SLIDING SCAL... ACHS SQ 09/26/24 16:30 10/26/24 16:29 Vital Signs (last 8hr) Date Time Temp Pulse Resp B/P (MAP) Pulse Ox O2 Delivery O2 Flow Rate FiO2 09/26/24 15:00 98.1 71 18 105/45 97 Room Air* 0 21 09/26/24 14:00 98.1 71 18 122/61 97 Room Air* 0 21 09/26/24 13:16 76 18 09/26/24 12:02 98.1 81 20 164/64 97 Room Air* 0 21 09/26/24 10:26 98.1 81 20 114/64 97 0 DIAGNOSTICS / RADIOLOGY: REASON: BIlateral flank pain, constipation ORDERING PHYSICIAN: NIKI CHAMBERS MD PROCEDURE: ABD PEL WO - CT ABDOMEN/PELVIS W/O CONTRAST Exam Type: CT ABDOMEN/PELVIS W/O CONTRAST Clinical Information: BIlateral flank pain, constipation Comparison: None CT Dose Index (CTDI): 10.20 mGy Dose Length Product (DLP): 530.00 total mGy-cm PROTOCOL: Routine noncontrast helical scanning of the abdomen and pelvis was performed at 5mm collimation. Findings: No evidence of nephro or ureterolithiasis is found. No hydronephrosis or ureteral dilatation is seen. The lung bases are clear. The stomach is unremarkable. It shows no wall thickening. No gross ulceration is seen. It is not overly distended. There are no surrounding inflammatory changes. No wall lesions are identified to suggest cancer. The spleen is unremarkable. It is not enlarged. The pancreas shows normal anatomy. It is not fatty replaced. It shows no lesions. The pancreatic duct is not dilated. The gallbladder is unremarkable. It shows no cholelithiasis. The gallbladder wall is normal in thickness. There is no pericholecystic fluid. The is no acute or chronic inflammation noted. The adrenal glands are unremarkable. There is no enlargement. No lesions are noted. The liver is unremarkable. It shows no focal masses. The appendix is unremarkable. It shows no evidence of inflammation. No appendicolith is seen. The small bowel is unremarkable. There is no evidence of dilatation to suggest obstruction. No evidence of adynamic ileus is seen. There is no small bowel wall thickening to suggest enteritis. The colon is unremarkable. The urinary bladder is unremarkable. There is no wall thickening to suggest tumor or inflammation. There are no intraluminal calculi. There are no diverticula. There is no evidence of chronic bladder outlet obstruction. There is no evidence of urinary bladder distention to suggest urinary retention. The other pelvic structures are unremarkable. The bony and vascular structures are unremarkable for the patient's age. IMPRESSION: NEGATIVE CT SCAN OF THE ABDOMEN AND PELVIS. NO RENAL STONES. NO ACUTE PATHOLOGY OR INFLAMMATION SEEN. This study was performed using dose reduction techniques to include automated exposure control and/or adjustment of the mA and/or kV according to patient size. DICTATED BY: JENARO REBOLLEDO MD DATE: 09/26/24 3267 REASON: SHORTNESS A BREATH. HISTORY OF ESRD WITH HEMODIALYSIS ORDERING PHYSICIAN: TOMA FINNEY NP PROCEDURE: CXR1VW - CHEST 1VW Exam Type: CHEST 1VW Clinical Information: SHORTNESS A BREATH. HISTORY OF ESRD WITH HEMODIALYSIS Comparison: None Findings: The lungs are clear of infiltrates. The heart is normal in size. The bony and soft tissue structures of the chest are unremarkable. Impression: Clear lungs. DICTATED BY: JENARO REBOLLEDO MD DATE: 09/26/24 1138 LABORATORY: [ ] Hematology Labs: Test 09/26/24 10:42 Range/Units White Blood Count 9.1 4.8-10.8 K/uL Red Blood Count 3.37 L 4.50-6.20 MIL/uL Hemoglobin 10.3 L 14.0-18.0 g/dL Hematocrit 31.6 L 42-54 % Mean Corpuscular Volume 93.8 79-99 fL Mean Corpuscular Hemoglobin 30.6 27.0-33.0 pg Mean Corpuscular Hemoglobin Concent 32.6 32.0-36.0 g/dL Red Cell Distribution Width 13.5 11.0-15.5 % Platelet Count 256 130-400 K/uL Mean Platelet Volume 10.8 H 7.5-10.5 fL Immature Granulocyte % (Auto) 0.6 0-1 % Neutrophils (%) (Auto) 74.5 40.0-77.0 % Lymphocytes (%) (Auto) 10.5 L 21.0-51.0 % Monocytes (%) (Auto) 10.3 3.0-13.0 % Eosinophils (%) (Auto) 3.5 0.0-8.0 % Basophils (%) (Auto) 0.6 0.0-5.0 % Neutrophils # (Auto) 6.8 1.8-7.7 K/uL Lymphocytes # (Auto) 1.0 1.0-4.8 K/uL Monocytes # (Auto) 0.9 0.1-1.0 K/uL Eosinophils # (Auto) 0.32 0.00-0.70 K/uL Basophils # (Auto) 0.05 0.00-0.20 K/uL Absolute Immature Granulocyte (auto 0.05 0-1 K/uL Nucleated Red Blood Cells 0.0 0.0-0.19 % Chemistry Labs: Test 09/26/24 13:49 09/26/24 10:42 Range/Units Troponin I High Sensitivity 639 *H 4-75 ng/L Sodium Level 134 L 136-145 mmol/L Potassium Level 5.3 H 3.5-5.1 mmol/L Chloride Level 96 L 101-111 mmol/L Carbon Dioxide Level 28 21-32 mmol/L Blood Urea Nitrogen 48 H 7-18 mg/dL Creatinine 8.8 *H 0.5-1.3 mg/dL Glomerular Filtration Rate Calc 7 >90 mL/min Random Glucose 253 H 70-105 mg/dL Hemoglobin A1c 9.4 H 4.0-6.0 % Estimated Average Glucose (eAG) 223 H 70-126 mg/dL Total Calcium 8.1 L 8.5-10.1 mg/dL Total Bilirubin 0.5 0.2-1.0 mg/dL Direct Bilirubin 0.1 0.0-0.3 mg/dL Aspartate Amino Transf (AST/SGOT) 11 10-37 U/L Alanine Aminotransferase (ALT/SGPT) 22 12-78 U/L Alkaline Phosphatase 52 50-136 U/L Total Creatine Kinase 132 # 21-232 U/L B-Type Natriuretic Peptide 583 H 0-100 pg/mL Total Protein 7.6 6.0-8.3 g/dL Albumin 3.2 L 3.5-5.0 g/dL Thyroid Stimulating Hormone (TSH) 7.00 #H 0.36-3.74 uIU/mL ASSESSMENT: Patient has fluid overload with acute hypoxic respiratory failure with severe orthopnea and history of noncompliance and multiple other comorbidities Fluid overload Hyperkalemia Noncompliance Anemia End-stage renal disease Elevated troponin Hypertension Hyperlipidemia Diabetes mellitus type 2 Hypothyroidism Obesity PLAN: Labs and Diagnostics/ Radiology personally reviewed and interpreted by myself and supervising physician We have reviewed dialysis and external records in detail Patient will have dialysis today and Continue dialysis schedule Wednesday He was counseled on the importance of 1.5 L fluid restriction Continue to monitor H&H Start Nephro-Kaz daily Epogen on dialysis days, as needed Continue with frequent monitoring of renal function, anemia, and electrolytes Order CBC, BMP, and electrolytes in the morning May use Dilaudid 0.5 mg IV every 6 hours as needed for severe pain Monitor blood pressure adjust medication doses as needed Maintain normotensive state Strict intake, output, and daily weight should be monitored Please renally adjust medications. Avoid nephrotoxics and nonsteroidal drugs. We will continue to monitor the patient closely We have discussed with the other team physicians in detail about the care plan Thank you for allowing us to participate in the care of this patient ATTESTATION BY PHYSICIAN I have seen and examined the patient. I reviewed the documentation, medical decision making, and treatment plan as noted by the mid-level provider above. I agree with the findings and plan of care. GILMA SOTELO MD, ELIZABETH FNP Sep 26, 2024 15:14 GILMA SOTELO MD Sep 26, 2024 22:40
[2024-09-26] MEDS: INSULIN humuLIN R 100 UNIT/ML 3ML SQ SCH (16:30)
[2024-09-26] MEDS ORDERED: CHOL2000 PO (18:27)
[2024-09-26] MEDS ORDERED: HYDR25TA PO (18:27)
[2024-09-26] MEDS: 0.9%NACL 1000ML 1,000 ML IV ONE (19:30)
--- NOTE | 2024-09-26 20:01 | NUR ---
DR. BRADY AT BEDSIDE AT THIS TIME
[2024-09-26] MEDS ORDERED: hydrALAZine 25MG TABLET PO SCH (21:00)
[2024-09-26] MEDS: HEParin 5,000 UNIT VIAL SQ SCH (21:00)
[2024-09-26] MEDS: ROSUVASTATIN 40MG PO SCH (21:00)
--- NOTE | 2024-09-26 21:44 | NUR ---
PATIENT HAD 3.3L REMOVED BY DIALYSIS NURSE; 2 HOUR CYCLE COMPLETED AT THIS TIME.
[2024-09-26] MEDS: carVEDIlol 12.5 MG TABLET PO SCH (21:52)
--- NOTE | 2024-09-26 22:00 | NUR ---
REPORT GIVEN TO LIDIA SUTTON
[2024-09-27] VITALS (20 sets, daily range): BP systolic 119–171; BP diastolic 60–87; PULSE 74–90; RESP 16–20; TEMP 97.4–98.9; O2SAT 97
[2024-09-27 06:23] LABS: BASOPHILS # (AUTO) 0.06 K/uL (0.00-0.20); BASOPHILS % (AUTO) 0.6 % (0.0-5.0); EOSINOPHILS # (AUTO) 0.31 K/uL (0.00-0.70); HEMATOCRIT 30.7 % (42-54); IMMATURE GRANULOCYTE ABSOLUTE 0.07 K/uL (0-1); LYMPHOCYTES % (AUTO) 9.5 % (21.0-51.0); MEAN CORPUSCULAR HEMOGLOBIN 31.1 pg (27.0-33.0); MEAN CORPUSCULAR HGB CONC 33.6 g/dL (32.0-36.0); MEAN CORPUSCULAR VOLUME 92.7 fL (79-99); MONOCYTES % (AUTO) 9.9 % (3.0-13.0); NEUTROPHILS % (AUTO) 76.3 % (40.0-77.0); PLATELET COUNT (AUTO) 254 K/uL (130-400); RED BLOOD CELL COUNT(AUTO) 3.31 MIL/uL (4.50-6.20); RED CELL DISTRIBUTION WIDTH 13.6 % (11.0-15.5); WHITE BLOOD COUNT (AUTO) 10.4 K/uL (4.8-10.8)
[2024-09-27 06:35] LABS: ALBUMIN 3.1 g/dL (3.5-5.0); BILIRUBIN,TOTAL 0.5 mg/dL (0.2-1.0); PHOSPHORUS 6.8 mg/dL (2.5-4.9); POTASSIUM 5.3 mmol/L (3.5-5.1); TOTAL PROTEIN, SERUM 7.3 g/dL (6.0-8.3)
[2024-09-27 06:37] LABS: CREATININE 8.1 mg/dL (0.5-1.3)
[2024-09-27] MEDS: ASPIRIN 81MG CHEW TAB PO SCH (08:38)
[2024-09-27] MEDS: nifeDIPine ER 30 MG TAB PO SCH (08:38)
--- NOTE | 2024-09-27 11:26 | PN ---
[facility] PROGRESS NOTE Date of Service: Sep 27, 2024 Time of Service: 11:21 SUBJECTIVE: This is a 39-year-old male with past medical history of hypertension, hyperlipidemia, ESRD, diabetes mellitus type 2 presented to the hospital secondary to generalized fatigue, shortness of breath. He stated that he saw Dr. Gamble around a month ago and had a possible heart catheterization which per patient was noted to be unremarkable. He denied having any stents placed during the procedure. Labs were remarkable for white count of 9.1, hemoglobin was 10.3, platelet count was 256 K co, sodium was 134, potassium was 5.3, creatinine was 8.8, troponin was noted to be 654 Chest x-ray showed no acute infiltrates. During my visit today the patient is comfortably in bed, alert oriented x3, getting hemodialysis, tolerating well, denied chest pain, shortness shortness for breath, no nausea, no vomiting. Latest troponin 637. REVIEW OF SYSTEMS CONSTITUTIONAL: Denies fevers, chills, or night sweats. No unintentional weight loss reported. Positive for generalized fatigue NEUROLOGICAL: Denies headache, amaurosis fugax, motor weakness, sensory deficit, vertigo/spinning sensation, gait abnormalities, or tremors. ENT: No hearing loss, otalgia, otorrhea, rhinitis, rhinorrhea, hoarseness, or so re throat. CARDIOVASCULAR: Denies any exertional angina, dyspnea on exertion, orthopnea, paroxysmal nocturnal dyspnea, palpitations, life-threatening arrhythmias, claudication. PULMONARY: Positive for shortness of breath. Denied any cough, sputum production. SLEEP: Denies morning headaches, daytime somnolence or napping. Denies difficulty falling asleep, staying asleep, waking from sleep. Denies knowledge of snoring. GASTROINTESTINAL: Denies any type of dysphagia to either liquids or solids. Denies nausea, vomiting, pyrosis, early satiety, abdominal pain, diarrhea, constipation, or changes in stool consistency or caliber. Denies coffee-ground emesis, hematemesis, hematochezia, or melanotic stools. GENITOURINARY: Denies frequency, urgency, nocturia, hematuria or incontinence (Storage/Irritative symptoms.) Low urinary stream, straining to void, urinary intermittency or hesitancy, splitting of the voiding stream, terminal dribbling. ENDOCRINOLOGIC: Denies polyuria, polydipsia, polyphagia or heat/cold intolerances. HEMATOLOGIC: Denies thrombophilia/previous clots, or coagulopathy/bleeding disorders. ONCOLOGIC: Denies personal history of malignancy. DERMATOLOGIC: Denies rashes or pruritus. PSYCHIATRIC: Denies any suicidal or homicidal ideation. Denies hallucinations. PHYSICAL EXAM GENERAL APPEARANCE: The patient is awake, alert, and oriented, in no acute cardiopulmonary distress. NEUROLOGICAL: Cranial nerves II-XII grossly intact. Motor is 5/5 in bilateral upper and lower extremities proximal to distal. No sensory deficits. HEENT: Face is symmetric. Pupils are equal and reactive. Extraocular movements are intact. NECK: Supple. No JVD. No thyromegaly. No submental, submandibular, pre-/postauricular, occipital or supraclavicular lymphadenopathy. CHEST: Normal chest expansion. No Telemetry. LUNGS: Absence of any rales, rhonchi or any wheezing. CARDIOVASCULAR: Regular. S1 and S2 normal. No appreciable rubs, murmurs or gallops. ABDOMEN: Soft, nontender, and mildly distended. There is no rebound, voluntary guarding, or rigidity. : Deferred. No Lopez. EXTREMITIES: 1+ pitting edema in the lower extremity and not cyanotic. No clubbing. Good capillary refill. SKIN: No skin breakdown. Vital Signs (last 8hr) Date Time Temp Pulse Resp B/P (MAP) Pulse Ox O2 Delivery O2 Flow Rate FiO2 09/27/24 11:00 89 16 163/77 Room Air 09/27/24 10:45 89 16 165/84 Room Air 09/27/24 10:30 89 16 168/72 Room Air 09/27/24 10:15 89 16 171/82 Room Air 09/27/24 10:00 88 16 166/72 Room Air 09/27/24 09:45 80 16 162/73 Room Air 09/27/24 09:30 98.1 82 16 155/70 Room Air 09/27/24 09:20 98.1 80 18 163/80 Room Air 09/27/24 08:38 159/81 09/27/24 08:00 99.0 85 19 159/81 95 Room Air 09/27/24 04:00 97.9 89 20 156/81 98 Room Air LABS: Laboratory: Test 09/27/24 11:17 09/27/24 05:44 09/26/24 19:00 09/26/24 12:46 Range/Units Whole Blood Glucose 219 H 70-110 MG/DL White Blood Count 10.4 4.8-10.8 K/uL Red Blood Count 3.31 L 4.50-6.20 MIL/uL Hemoglobin 10.3 L 14.0-18.0 g/dL Hematocrit 30.7 L 42-54 % Mean Corpuscular Volume 92.7 79-99 fL Mean Corpuscular Hemoglobin 31.1 27.0-33.0 pg Mean Corpuscular Hemoglobin Concent 33.6 32.0-36.0 g/dL Red Cell Distribution Width 13.6 11.0-15.5 % Platelet Count 254 130-400 K/uL Mean Platelet Volume 10.8 H 7.5-10.5 fL Immature Granulocyte % (Auto) 0.7 0-1 % Neutrophils (%) (Auto) 76.3 40.0-77.0 % Lymphocytes (%) (Auto) 9.5 L 21.0-51.0 % Monocytes (%) (Auto) 9.9 3.0-13.0 % Eosinophils (%) (Auto) 3.0 0.0-8.0 % Basophils (%) (Auto) 0.6 0.0-5.0 % Neutrophils # (Auto) 8.0 H 1.8-7.7 K/uL Lymphocytes # (Auto) 1.0 1.0-4.8 K/uL Monocytes # (Auto) 1.0 0.1-1.0 K/uL Eosinophils # (Auto) 0.31 0.00-0.70 K/uL Basophils # (Auto) 0.06 0.00-0.20 K/uL Absolute Immature Granulocyte (auto 0.07 0-1 K/uL Nucleated Red Blood Cells 0.0 0.0-0.19 % White Cell Morphology Comment See comments Sodium Level 131 L 136-145 mmol/L Potassium Level 5.3 H 3.5-5.1 mmol/L Chloride Level 93 L 101-111 mmol/L Carbon Dioxide Level 29 21-32 mmol/L Blood Urea Nitrogen 48 H 7-18 mg/dL Creatinine 8.1 *H 0.5-1.3 mg/dL Glomerular Filtration Rate Calc 8 >90 mL/min Random Glucose 307 H 70-105 mg/dL Total Calcium 7.6 L 8.5-10.1 mg/dL Phosphorus Level 6.8 H 2.5-4.9 mg/dL Total Bilirubin 0.5 0.2-1.0 mg/dL Aspartate Amino Transf (AST/SGOT) 10 10-37 U/L Alanine Aminotransferase (ALT/SGPT) 18 12-78 U/L Alkaline Phosphatase 50 50-136 U/L Total Protein 7.3 6.0-8.3 g/dL Albumin 3.1 L 3.5-5.0 g/dL Troponin I High Sensitivity 637 *H 4-75 ng/L Influenza Type A Antigen Negative For Type A NEGATIVE Influenza Type B Antigen Negative For Type B NEGATIVE SARS-CoV-2, RNA, NAAT NEGATIVE SARS CoV-2 NEGATIVE Test 09/26/24 10:42 Range/Units Hemoglobin A1c 9.4 H 4.0-6.0 % Estimated Average Glucose (eAG) 223 H 70-126 mg/dL Direct Bilirubin 0.1 0.0-0.3 mg/dL Total Creatine Kinase 132 # 21-232 U/L B-Type Natriuretic Peptide 583 H 0-100 pg/mL Thyroid Stimulating Hormone (TSH) 7.00 #H 0.36-3.74 uIU/mL Current Medications Medications (Trade) Dose Ordered Sig/Kay Route PRN Reason Start Time Stop Time Status Last Admin Dose Admin Acetaminophen (TYLenol 500MG TAB) 500 mg Q6H PRN PO MILD PAIN (1-3) 09/26/24 12:30 10/26/24 12:29 Aspirin (Aspirin 81mg Chew Tab) 81 mg DAILY PO 09/27/24 09:00 10/27/24 08:59 09/27/24 08:38 81 MG Carvedilol (Coreg 12.5MG) 12.5 mg BID PO 09/26/24 21:00 10/26/24 20:59 09/27/24 08:38 12.5 MG Heparin Sodium (Porcine) (HEParin 5,000 UNIT VIAL) 5,000 unit Q12H SQ 09/26/24 21:00 10/26/24 20:59 09/27/24 08:39 5,000 UNIT Home Med (Home Medication) HS PO 09/26/24 21:00 10/26/24 20:59 Hydralazine HCl (APRESOLine 20MG INJ) 10 mg Q6H PRN IV ADMINISTER FOR SBP > 180 09/26/24 12:30 10/26/24 12:29 Hydralazine HCl ([id number] TAB) 25 mg TID PO 09/26/24 15:00 10/26/24 14:59 09/27/24 08:38 25 MG Hydralazine HCl ([id number] TAB) 25 mg TID PO 09/26/24 21:00 09/26/24 14:43 DC Insulin Human Regular (humuLIN R 100 UNIT/ML 3ML) INSULIN SLIDING SCAL... ACHS SQ 09/26/24 16:30 10/26/24 16:29 09/27/24 06:35 6 UNIT Nifedipine (adALAT 30MG) 30 mg DAILY PO 09/27/24 09:00 10/27/24 08:59 09/27/24 08:38 30 MG DIAGNOSTICS / RADIOLOGY: [ ] ASSESSMENT: Hyperkalemia Troponin elevation likely type 2 DC from demand mismatch and ESRD status Shortness of breaths differential secondary to volume overload from ESRD ESRD on HD MWF Hypertension Hyperlipidemia Diabetes mellitus type 2 with associated hyperglycemia Obesity PLAN: - patient remains admitted to the medical floor -in reference to shortness of breadth. Patient is currently saturating 97% on room air. We will closely observe. Serology test negative. Nephrology consu lted, continue HD. -in reference to troponin elevation. Echocardiogram pending to evaluate ejection fraction. Cardiology consultation requested, we will follow input and recommendations. -patient to continue on sliding scale insulin -hemoglobin A1c and TSH elevated, outpatient follow up with the thin film technician. -home medications reviewed and reconciled -further orders per hospitalization course NEURO: Minimize central acting medications as possible. Fall Precautions. Well lighted room through the day and minimize interruptions through the night to prevent acute delirium. PULMONARY: Supplemental 02 as needed BiPAP as necessary, for respiratory distress Titrate Fio2 to keep Spo2 > or = 90% DuoNebs and CPT as needed IS hourly while awake for pulmonary hygiene prn Out of bed to chair as tolerated Maintain aspiration precautions at all times CARDIOVASCULAR: Follow hemodynamics. Vital signs per facility protocol GI & NUTRITION: Continue nutritional support Aspirations precautions Prokinetic agents and laxatives as needed KIDNEYS & ELECTROLYTES: Strict monitoring of intake and output Daily weights Avoid nephrotoxic agents Monitor electrolytes and replace as needed Goal urine output of 30mL/hr or 0.5mL/kg/hr Medications to be dosed according to renal function. Avoid contrast if possible ENDOCRINE: Maintain blood glucose between 100-180 at all times. Insulin sliding scale for blood glucose management Hypoglycemia and hyperglycemia protocol in place INFECTIOUS DISEASE: Trend temperature, WBC and procalcitonin level Follow cultures, deescalate antibiotics as soon as possible. Panculture if new onset fever HEMATOLOGY & COAGULATION: Monitor H&H. Keep Hgb > 7 Transfuse 1 unit of PRBC for Hgb < 7 Transfuse 1 pack of platelets of platelets < 20, 000 Watch for any signs and symptoms of bleeding SKIN: Pressure ulcer prevention per facility protocol Specialty mattress as needed ORTHO/REHAB Continue PT/OT PRN: MEDICATIONS Tylenol 650 mg po every 4 hrs for fever zofran 4 mg IV every 6 hrs for n/v Hydralazine 5 mg IV every 4 hrs systolic pressure > 160 bowel regiment: lactulose 20 gm PO BID PRN constipation Supportive measures: Continue GI and DVT prophylaxis Disposition: Pending improvement in clinical condition. All questions answered time spent: > 35 min SHANTE COLBERT MD Sep 27, 2024 11:26
[2024-09-27] MEDS ORDERED: Cholecalciferol (Vitamin D3) 50 MCG PO SCH (11:30)
--- NOTE | 2024-09-27 14:10 | NUR ---
Notes: Met with pt. Communicated in Iranian. Pt wasnt feeling well, wasnt able to answer my questions. Will educate patient tomorrow 09/28/24. HD removal 3.3L 09/25/24. Nutrition Concerns: Recommendations: Continue Renal Dialysis Diet + 75GMCCD Fluid restriction per MD Provide Vit B complex per dialysis when medically feasible Monitor weight, Reweigh as possible Monitor electrolytes, Replenish electrolytes as protocol Monitor goals of care RD to follow + available for consult per protocol Dietetic Student, Gabby Og Addendum: 09/27/24 at [address] Amended: Links added.
--- NOTE | 2024-09-27 16:00 | NUR ---
CALL MADE TO DR. BRADY'S OFFICE REGARDING LATEST TROPONIN LEVEL, PENDING CALL BACK.
--- NOTE | 2024-09-27 18:20 | CONS ---
CARDIOLOGY CONSULTATION HISTORY OF PRESENT ILLNESS: The patient is a 39-year-old man with known multiple problems. He is on dialysis. He has a history of noncompliance with medicines and occasionally with dialysis. He was admitted with shortness of breath. His troponins were slightly elevated. Cardiology has requested to see him. He currently has no chest pain. The patient is very somnolent. On simple questions, he had difficulty answering and he falls immediately asleep, however, he specifically denies chest pain and he currently is not short of breath. His creatinine is 8.8, BUN is 48. PHYSICAL EXAMINATION: VITAL SIGNS: His blood pressure is 164/86 and has been stable. HEENT: Unremarkable except for obesity. NECK: Neck veins were not significantly elevated, but were difficult to evaluate. LUNGS: Have distant sounds. There are no crackles or wheezes. Heart sounds are distant. HEART: Regular. ABDOMEN: Obese. EXTREMITIES: Obese. Pulses are difficult to palpate, however, all extremities are warm. DIAGNOSTIC STUDIES: Electrocardiogram is nonischemic. ASSESSMENT AND PLAN: Likely coronary disease and multiple other medical problems, which has been uncontrolled. Once patient is more conversant, we will review tomorrow. Meanwhile, he will require an ischemic workup once his renal status is stabilized. Thank you for allowing me to participate in management of this gentleman. TID: [id number] RECEIPT: [id number]
--- NOTE | 2024-09-27 18:23 | PN ---
SUBJECTIVE: The patient has been evaluated and seen for dialysis, seen several times. The patient is critically ill with severe hypoxemia, shortness of breath, hypoxic respiratory failure, and fluid overload. The patient is undergoing dialysis also. The patient has otherwise noncompliance with the fluid. No fever, chills, or rigors but has shortness of breath. PHYSICAL EXAMINATION: VITAL SIGNS: Blood pressure has been around 154/58, pulse 82, respiratory rate is 14. HEENT: Head is atraumatic. Pupils are round and reactive. Sclerae are anicteric. Conjunctivae are not pale. CHEST: Shows crackles. PROBLEMS: Acute hypoxic respiratory failure with fluid overload, anemia, diabetes, and multiple other comorbidities. PLAN: To continue dialysis support. The patient's condition is guarded. The patient was seen several times today. Total time spent was more than 70 minutes. We will be monitoring closely. The patient was evaluated on and off dialysis multiple times. TID: [id number] RECEIPT: [id number]
--- NOTE | 2024-09-27 20:04 | PN ---
NEPHROLOGY NOTE SUBJECTIVE: The patient has been evaluated, seen for dialysis and seen multiple times. No other associated finding. No other aggravating or relieving factors. No other associated symptoms. The patient was seen and seen for dialysis multiple times. Overall, condition remained guarded. The patient is short of breath, has elevated troponin, being worked followup. Has weakness, anemia, elevated troponin level and obesity, possible sleep apnea. PLAN: The patient was evaluated and seen for dialysis multiple times. I have discussed with other team members. IV Dilaudid 0.5 q. 6 can be used for pain. Overall, condition remained guarded. Thank you for this patient. TID: [id number] RECEIPT: [id number]
[2024-09-27] MEDS: INSULIN GLARgine 100 UNITS/ML 10 ML VIAL SQ SCH (20:50)
[2024-09-28 04:37] LABS: MEAN CORPUSCULAR HEMOGLOBIN 30.8 pg (27.0-33.0); MEAN CORPUSCULAR HGB CONC 33.5 g/dL (32.0-36.0); MEAN CORPUSCULAR VOLUME 91.9 fL (79-99); RED BLOOD CELL COUNT(AUTO) 3.7 MIL/uL (4.50-6.20); RED CELL DISTRIBUTION WIDTH 13.5 % (11.0-15.5); WHITE BLOOD COUNT (AUTO) 9.2 K/uL (4.8-10.8)
[2024-09-28 04:43] VITALS: BP 147/70; PULSE 72; RESP 18; TEMP 97.9
[2024-09-28 04:54] LABS: ALBUMIN 3.2 g/dL (3.5-5.0); BILIRUBIN,TOTAL 0.4 mg/dL (0.2-1.0); CREATININE 7.9 mg/dL (0.5-1.3); MAGNESIUM 2.9 mg/dL (1.80-2.40); POTASSIUM 4.5 mmol/L (3.5-5.1); TOTAL PROTEIN, SERUM 7.9 g/dL (6.0-8.3)
[2024-09-28 08:10] VITALS: BP 161/79; PULSE 74; RESP 18; TEMP 97.4
[2024-09-28 08:45] VITALS: O2SAT 100
[2024-09-28] MEDS: hydroCHLOROthiazide 25 MG TABLET PO SCH (09:09)
[2024-09-28] MEDS: Vitamin B Complex/Vit C/Folic Acid PO SCH (09:09)
[2024-09-28] MEDS: CALCITRIOL 0.25 MCG CAP PO SCH (09:09)
--- NOTE | 2024-09-28 10:30 | NUR ---
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 Patient lives with Claudia Haile, Mother [phone] and father in a mobile home with 4 step entrance and walk in shower. States he is unemployed, remains independent and drives self. States able to complete ADL's on his own. Denies medical devices. goes to dialysis Mondays, Wednesdays and Fridays at [facility]. has a concentrator (gifted to him from a friend) at home that he uses occasionally when shortness of breath PCP - Edna Cheek DO Pharmacy - [facility] [place]. Upon discharge, Claudia Haile, Mother [phone] and assist with care, as needed. Addendum: 09/28/24 at 1037 by JASON EDGAR RN CM Amended: Links added.
[2024-09-28 12:00] VITALS: BP 150/68; PULSE 74; RESP 18; TEMP 97.8
[2024-09-28] MEDS ORDERED: hydrALAZine 20MG/ML VIAL IV PRN (13:00)
--- NOTE | 2024-09-28 13:19 | PN ---
NEPHROLOGY PROGRESS NOTE Date/Time Patient Seen: Sep 28, 2024 SUBJECTIVE: This is a 39-year-old male with a past medical history of end-stage renal disease on hemodialysis Wednesday, diabetes mellitus type 2, hypertension, anemia, hyperlipidemia, hypothyroidism and obesity He presented to the emergency room with complaints of generalized fatigue and shortness of breath. He continues to be noncompliant with fluid restriction and dialysis sessions. He tolerated dialysis without difficultly yesterday Pending echocardiogram results He was seen in the medical floor, in no acute distress Family at the bedside Prognosis remains guarded REVIEW OF SYSTEMS: GENERAL: Positive for shortness of breath and generalized weakness NEUROLOGIC: Negative for any blurry vision, blind spots, double vision, facial asymmetry, dysphagia, dysarthria, hemiparesis, hemisensory deficits, vertigo, ataxia. HEENT: Negative for any head trauma, neck trauma, neck stiffness, photophobia, phonophobia, sinusitis, rhinitis. CARDIAC: Negative for any chest pain, dyspnea on exertion, paroxysmal nocturnal dyspnea, peripheral edema. PULMONARY: Negative for any shortness of breath, wheezing, COPD, or TB exposure. GASTROINTESTINAL: Negative for any abdominal pain, nausea, vomiting, bright red blood per rectum, melena. GENITOURINARY: Negative for any dysuria, hematuria, incontinence. INTEGUMENTARY: Negative for any rashes, cuts, insect bites. RHEUMATOLOGIC: Negative for any joint pains, photosensitive rashes, history of vasculitis or kidney problems. HEMATOLOGIC: Negative for any abnormal bruising, frequent infections or bleeding. PHYSICAL EXAM: GENERAL: Alert and oriented x 3. No acute distress. Well-nourished. EYES: EOMI. Anicteric. HENT: Moist mucous membranes. No scleral icterus. No cervical lymphadenopathy. LUNGS: Clear to auscultation bilaterally. No accessory muscle use. CARDIOVASCULAR: Regular rate and rhythm. No murmur. No JVD. ABDOMEN: Soft, non-tender and non-distended. No palpable masses. EXTREMITIES: 2+ edema. Non-tender. SKIN: No rashes or lesions. Warm. NEUROLOGIC: No focal neurological deficits. CN II-XII grossly intact, but not individually tested. PSYCHIATRIC: Cooperative. Appropriate mood and affect. LABORATORY: [ ] Hematology Labs: Test 09/28/24 04:25 09/27/24 05:44 Range/Units White Blood Count 9.2 4.8-10.8 K/uL Red Blood Count 3.70 L 4.50-6.20 MIL/uL Hemoglobin 11.4 L 14.0-18.0 g/dL Hematocrit 34.0 L 42-54 % Mean Corpuscular Volume 91.9 79-99 fL Mean Corpuscular Hemoglobin 30.8 27.0-33.0 pg Mean Corpuscular Hemoglobin Concent 33.5 32.0-36.0 g/dL Red Cell Distribution Width 13.5 11.0-15.5 % Platelet Count 263 130-400 K/uL Mean Platelet Volume 10.4 7.5-10.5 fL Nucleated Red Blood Cells 0.0 0.0-0.19 % Immature Granulocyte % (Auto) 0.7 0-1 % Neutrophils (%) (Auto) 76.3 40.0-77.0 % Lymphocytes (%) (Auto) 9.5 L 21.0-51.0 % Monocytes (%) (Auto) 9.9 3.0-13.0 % Eosinophils (%) (Auto) 3.0 0.0-8.0 % Basophils (%) (Auto) 0.6 0.0-5.0 % Neutrophils # (Auto) 8.0 H 1.8-7.7 K/uL Lymphocytes # (Auto) 1.0 1.0-4.8 K/uL Monocytes # (Auto) 1.0 0.1-1.0 K/uL Eosinophils # (Auto) 0.31 0.00-0.70 K/uL Basophils # (Auto) 0.06 0.00-0.20 K/uL Absolute Immature Granulocyte (auto 0.07 0-1 K/uL White Cell Morphology Comment See comments Chemistry Labs: Test 09/28/24 10:37 09/28/24 04:25 09/27/24 15:15 09/27/24 05:44 Range/Units Whole Blood Glucose 282 #H 70-110 MG/DL Sodium Level 134 L 136-145 mmol/L Potassium Level 4.5 3.5-5.1 mmol/L Chloride Level 93 L 101-111 mmol/L Carbon Dioxide Level 31 21-32 mmol/L Blood Urea Nitrogen 57 H 7-18 mg/dL Creatinine 7.9 H 0.5-1.3 mg/dL Glomerular Filtration Rate Calc 8 >90 mL/min Random Glucose 68 #L 70-105 mg/dL Total Calcium 8.1 L 8.5-10.1 mg/dL Magnesium Level 2.90 H 1.80-2.40 mg/dL Total Bilirubin 0.4 0.2-1.0 mg/dL Aspartate Amino Transf (AST/SGOT) 9 L 10-37 U/L Alanine Aminotransferase (ALT/SGPT) 17 12-78 U/L Alkaline Phosphatase 51 50-136 U/L Total Protein 7.9 6.0-8.3 g/dL Albumin 3.2 L 3.5-5.0 g/dL Troponin I High Sensitivity 438 *H 4-75 ng/L Phosphorus Level 6.8 H 2.5-4.9 mg/dL DIAGNOSTICS / RADIOLOGY: REASON: BIlateral flank pain, constipation ORDERING PHYSICIAN: NIKI CHAMBERS MD PROCEDURE: ABD PEL WO - CT ABDOMEN/PELVIS W/O CONTRAST Exam Type: CT ABDOMEN/PELVIS W/O CONTRAST Clinical Information: BIlateral flank pain, constipation Comparison: None CT Dose Index (CTDI): 10.20 mGy Dose Length Product (DLP): 530.00 total mGy-cm PROTOCOL: Routine noncontrast helical scanning of the abdomen and pelvis was performed at 5mm collimation. Findings: No evidence of nephro or ureterolithiasis is found. No hydronephrosis or ureteral dilatation is seen. The lung bases are clear. The stomach is unremarkable. It shows no wall thickening. No gross ulceration is seen. It is not overly distended. There are no surrounding inflammatory changes. No wall lesions are identified to suggest cancer. The spleen is unremarkable. It is not enlarged. The pancreas shows normal anatomy. It is not fatty replaced. It shows no lesions. The pancreatic duct is not dilated. The gallbladder is unremarkable. It shows no cholelithiasis. The gallbladder wall is normal in thickness. There is no pericholecystic fluid. The is no acute or chronic inflammation noted. The adrenal glands are unremarkable. There is no enlargement. No lesions are noted. The liver is unremarkable. It shows no focal masses. The appendix is unremarkable. It shows no evidence of inflammation. No appendicolith is seen. The small bowel is unremarkable. There is no evidence of dilatation to suggest obstruction. No evidence of adynamic ileus is seen. There is no small bowel wall thickening to suggest enteritis. The colon is unremarkable. The urinary bladder is unremarkable. There is no wall thickening to suggest tumor or inflammation. There are no intraluminal calculi. There are no diverticula. There is no evidence of chronic bladder outlet obstruction. There is no evidence of urinary bladder distention to suggest urinary retention. The other pelvic structures are unremarkable. The bony and vascular structures are unremarkable for the patient's age. IMPRESSION: NEGATIVE CT SCAN OF THE ABDOMEN AND PELVIS. NO RENAL STONES. NO ACUTE PATHOLOGY OR INFLAMMATION SEEN. This study was performed using dose reduction techniques to include automated exposure control and/or adjustment of the mA and/or kV according to patient size. DICTATED BY: JENARO REBOLLEDO MD DATE: 09/26/24 1315 REASON: SHORTNESS A BREATH. HISTORY OF ESRD WITH HEMODIALYSIS ORDERING PHYSICIAN: TOMA FINNEY NP PROCEDURE: CXR1VW - CHEST 1VW Exam Type: CHEST 1VW Clinical Information: SHORTNESS A BREATH. HISTORY OF ESRD WITH HEMODIALYSIS Comparison: None Findings: The lungs are clear of infiltrates. The heart is normal in size. The bony and soft tissue structures of the chest are unremarkable. Impression: Clear lungs. DICTATED BY: JENARO REBOLLEDO MD DATE: 09/26/24 1138 ASSESSMENT: Acute hypoxic respiratory failure Severe orthopnea Noncompliance Fluid overload Hyperkalemia Noncompliance Anemia End-stage renal disease Elevated troponin Hypertension Hyperlipidemia Diabetes mellitus type 2 Hypothyroidism Obesity PLAN: Labs and Diagnostics/ Radiology personally reviewed and interpreted by myself and supervising physician We have reviewed dialysis and external records in detail Continue dialysis schedule Wednesday He was counseled on the importance of 1.5 L fluid restriction Continue to monitor H&H Epogen on dialysis days, as needed Continue with frequent monitoring of renal function, anemia, and electrolytes Order CBC, BMP, and electrolytes in the morning May use Dilaudid 0.5 mg IV every 6 hours as needed for severe pain Monitor blood pressure adjust medication doses as needed Maintain normotensive state Strict intake, output, and daily weight should be monitored Please renally adjust medications. Avoid nephrotoxics and nonsteroidal drugs. We will continue to monitor the patient closely We have discussed with the other team physicians in detail about the care plan ATTESTATION BY PHYSICIAN I have seen and examined the patient. I reviewed the documentation, medical decision making, and treatment plan as noted by the mid-level provider above. I agree with the findings and plan of care. GILMA SOTELO MD, ELIZABETH FNP Sep 28, 2024 13:18
[2024-09-28] MEDS ORDERED: ASPI-1005 PO (13:57)
[2024-09-28] MEDS ORDERED: NITR0.4T50 SL (13:58)
--- NOTE | 2024-09-28 14:05 | NUR ---
DR. BRADY RECOMMENDATIONS. DR. COLBERT S/O PENDING DR. BRADY'S RECOMMENDATIONS. CONTACTED DR. BRADY, REQUESTED RECOMMENDATIONS IF OK TO DISCHARGE. PENDING RESPONSE.
--- NOTE | 2024-09-28 15:00 | PN ---
[facility] PROGRESS NOTE Date of Service: Sep 28, 2024 Time of Service: 14:59 SUBJECTIVE: This is a 39-year-old male with past medical history of hypertension, hyperlipidemia, ESRD, diabetes mellitus type 2 presented to the hospital secondary to generalized fatigue, shortness of breath. He stated that he saw Dr. Gamble around a month ago and had a possible heart catheterization which per patient was noted to be unremarkable. He denied having any stents placed during the procedure. Labs were remarkable for white count of 9.1, hemoglobin was 10.3, platelet count was 256 K co, sodium was 134, potassium was 5.3, creatinine was 8.8, troponin was noted to be 654 Chest x-ray showed no acute infiltrates. During my visit today the patient is comfortably in bed, alert oriented x3, getting hemodialysis, tolerating well, denied chest pain, shortness shortness for breath, no nausea, no vomiting. Latest troponin 637. 09/28 patient is seen and examined, case discussed with the RN, no acute events overnight, denied chest pain, shortness shortness for breath, no nausea, no vomiting. Echocardiogram pending. Pending further Cardiology recommendations. Possible discharge home today. The patient underwent hemodialysis yesterday, tolerated well. REVIEW OF SYSTEMS CONSTITUTIONAL: Denies fevers, chills, or night sweats. No unintentional weight loss reported. Positive for generalized fatigue NEUROLOGICAL: Denies headache, amaurosis fugax, motor weakness, sensory deficit, vertigo/spinning sensation, gait abnormalities, or tremors. ENT: No hearing loss, otalgia, otorrhea, rhinitis, rhinorrhea, hoarseness, or sore throat. CARDIOVASCULAR: Denies any exertional angina, dyspnea on exertion, orthopnea, paroxysmal nocturnal dyspnea, palpitations, life-threatening arrhythmias, claudication. PULMONARY: Positive for shortness of breath. Denied any cough, sputum produc tion. SLEEP: Denies morning headaches, daytime somnolence or napping. Denies difficulty falling asleep, staying asleep, waking from sleep. Denies knowledge of snoring. GASTROINTESTINAL: Denies any type of dysphagia to either liquids or solids. Denies nausea, vomiting, pyrosis, early satiety, abdominal pain, diarrhea, constipation, or changes in stool consistency or caliber. Denies coffee-ground emesis, hematemesis, hematochezia, or melanotic stools. GENITOURINARY: Denies frequency, urgency, nocturia, hematuria or incontinence (Storage/Irritative symptoms.) Low urinary stream, straining to void, urinary intermittency or hesitancy, splitting of the voiding stream, terminal dribbling. ENDOCRINOLOGIC: Denies polyuria, polydipsia, polyphagia or heat/cold intolerances. HEMATOLOGIC: Denies thrombophilia/previous clots, or coagulopathy/bleeding disorders. ONCOLOGIC: Denies personal history of malignancy. DERMATOLOGIC: Denies rashes or pruritus. PSYCHIATRIC: Denies any suicidal or homicidal ideation. Denies hallucinations. PHYSICAL EXAM GENERAL APPEARANCE: The patient is awake, alert, and oriented, in no acute cardiopulmonary distress. NEUROLOGICAL: Cranial nerves II-XII grossly intact. Motor is 5/5 in bilateral upper and lower extremities proximal to distal. No sensory deficits. HEENT: Face is symmetric. Pupils are equal and reactive. Extraocular movements are intact. NECK: Supple. No JVD. No thyromegaly. No submental, submandibular, pre- /postauricular, occipital or supraclavicular lymphadenopathy. CHEST: Normal chest expansion. No Telemetry. LUNGS: Absence of any rales, rhonchi or any wheezing. CARDIOVASCULAR: Regular. S1 and S2 normal. No appreciable rubs, murmurs or gallops. ABDOMEN: Soft, nontender, and mildly distended. There is no rebound, voluntary guarding, or rigidity. : Deferred. No Lopez. EXTREMITIES: 1+ pitting edema in the lower extremity and not cyanotic. No clubbing. Good capillary refill. SKIN: No skin breakdown. Vital Signs (last 8hr) Date Time Temp Pulse Resp B/P (MAP) Pulse Ox O2 Delivery O2 Flow Rate FiO2 09/28/24 12:00 97.9 74 18 150/68 97 09/28/24 09:08 161/79 09/28/24 08:10 97.3 74 18 161/79 100 Room Air LABS: Laboratory: Test 09/28/24 10:37 09/28/24 04:25 09/27/24 15:15 09/27/24 05:44 Range/Units Whole Blood Glucose 282 #H 70-110 MG/DL White Blood Count 9.2 4.8-10.8 K/uL Red Blood Count 3.70 L 4.50-6.20 MIL/uL Hemoglobin 11.4 L 14.0-18.0 g/dL Hematocrit 34.0 L 42-54 % Mean Corpuscular Volume 91.9 79-99 fL Mean Corpuscular Hemoglobin 30.8 27.0-33.0 pg Mean Corpuscular Hemoglobin Concent 33.5 32.0-36.0 g/dL Red Cell Distribution Width 13.5 11.0-15.5 % Platelet Count 263 130-400 K/uL Mean Platelet Volume 10.4 7.5-10.5 fL Nucleated Red Blood Cells 0.0 0.0-0.19 % Sodium Level 134 L 136-145 mmol/L Potassium Level 4.5 3.5-5.1 mmol/L Chloride Level 93 L 101-111 mmol/L Carbon Dioxide Level 31 21-32 mmol/L Blood Urea Nitrogen 57 H 7-18 mg/dL Creatinine 7.9 H 0.5-1.3 mg/dL Glomerular Filtration Rate Calc 8 >90 mL/min Random Glucose 68 #L 70-105 mg/dL Total Calcium 8.1 L 8.5-10.1 mg/dL Magnesium Level 2.90 H 1.80-2.40 mg/dL Total Bilirubin 0.4 0.2-1.0 mg/dL Aspartate Amino Transf (AST/SGOT) 9 L 10-37 U/L Alanine Aminotransferase (ALT/SGPT) 17 12-78 U/L Alkaline Phosphatase 51 50-136 U/L Total Protein 7.9 6.0-8.3 g/dL Albumin 3.2 L 3.5-5.0 g/dL Troponin I High Sensitivity 438 *H 4-75 ng/L Immature Granulocyte % (Auto) 0.7 0-1 % Neutrophils (%) (Auto) 76.3 40.0-77.0 % Lymphocytes (%) (Auto) 9.5 L 21.0-51.0 % Monocytes (%) (Auto) 9.9 3.0-13.0 % Eosinophils (%) (Auto) 3.0 0.0-8.0 % Basophils (%) (Auto) 0.6 0.0-5.0 % Neutrophils # (Auto) 8.0 H 1.8-7.7 K/uL Lymphocytes # (Auto) 1.0 1.0-4.8 K/uL Monocytes # (Auto) 1.0 0.1-1.0 K/uL Eosinophils # (Auto) 0.31 0.00-0.70 K/uL Basophils # (Auto) 0.06 0.00-0.20 K/uL Absolute Immature Granulocyte (auto 0.07 0-1 K/uL White Cell Morphology Comment See comments Phosphorus Level 6.8 H 2.5-4.9 mg/dL Current Medications Medications (Trade) Dose Ordered Sig/Kay Route PRN Reason Start Time Stop Time Status Last Admin Dose Admin Acetaminophen (TYLenol 500MG TAB) 500 mg Q6H PRN PO MILD PAIN (1-3) 09/26/24 12:30 10/26/24 12:29 Aspirin (Aspirin 81mg Chew Tab) 81 mg DAILY PO 09/27/24 09:00 10/27/24 08:59 09/28/24 09:09 81 MG Calcitriol (Rocaltrol 0.25mcg Cap) 0.25 mcg DAILY PO 09/28/24 09:00 10/28/24 08:59 09/28/24 09:09 0.25 MCG Carvedilol (Coreg 12.5MG) 12.5 mg BID PO 09/26/24 21:00 10/26/24 20:59 09/28/24 09:08 12.5 MG Heparin Sodium (Porcine) (HEParin 5,000 UNIT VIAL) 5,000 unit Q12H SQ 09/26/24 21:00 10/26/24 20:59 09/28/24 09:10 5,000 UNIT Home Med (Home Medication) HS PO 09/26/24 21:00 10/26/24 20:59 Home Med (Home Medication) Cholecalciferol (Vitamin D3) 50 MCG AD PO 09/27/24 11:30 10/27/24 11:29 Home Med (Home Medication) Ferric Citrate 210MG... TIDMEALS PO 09/27/24 12:00 10/27/24 11:59 Hydralazine HCl (APRESOLine 20MG INJ) 5 mg Q6H PRN IV ADMINISTER FOR SBP > 160 09/28/24 13:00 10/28/24 12:59 Hydralazine HCl (APRESOLine 20MG INJ) 10 mg Q6H PRN IV ADMINISTER FOR SBP > 180 09/26/24 12:30 10/26/24 12:29 Hydralazine HCl ([id number] TAB) 25 mg TID PO 09/26/24 15:00 10/26/24 14:59 09/28/24 09:08 25 MG Hydralazine HCl ([id number] TAB) 25 mg TID PO 09/26/24 21:00 09/26/24 14:43 DC Hydrochlorothiazide (hydroCHLOROthiazide 25MG) 25 mg DAILY PO 09/28/24 09:00 10/28/24 08:59 09/28/24 09:09 25 MG Insulin Glargine (LANtus 100 UNITS/ML 10 ML VIAL) 10 units HS SQ 09/27/24 21:00 10/27/24 20:59 09/27/24 20:50 10 UNITS Insulin Human Regular (humuLIN R 100 UNIT/ML 3ML) INSULIN SLIDING SCAL... ACHS SQ 09/26/24 16:30 10/26/24 16:29 09/28/24 11:59 6 UNIT Nifedipine (adALAT 30MG) 30 mg DAILY PO 09/27/24 09:00 10/27/24 08:59 09/28/24 09:08 30 MG Vitamin B Complex/ Vit C/Folic Acid (Nephrovite Tablet) 1 cap DAILY PO 09/28/24 09:00 10/28/24 08:59 09/28/24 09:09 1 CAP DIAGNOSTICS / RADIOLOGY: [ ] ASSESSMENT: Hyperkalemia Troponin elevation likely type 2 NJ from demand mismatch and ESRD status Shortness of breaths differential secondary to volume overload from ESRD ESRD on HD MWF Hypertension Hyperlipidemia Diabetes mellitus type 2 with associated hyperglycemia Obesity PLAN: - patient remains admitted to the medical floor -in reference to shortness of breadth. Patient is currently saturating 97% on room air. We will closely observe. Serology test negative. Nephrology consulted, continue HD. -in reference to troponin elevation. Echocardiogram pending to evaluate ejection fraction. Cardiology consultation requested, we will follow input and recommendations. -patient to continue on sliding scale insulin -hemoglobin A1c and TSH elevated, outpatient follow up with the net programmer analyst. -home medications reviewed and reconciled -further orders per hospitalization course NEURO: Minimize central acting medications as possible. Fall Precautions. Well lighted room through the day and minimize interruptions through the night to prevent acute delirium. PULMONARY: Supplemental 02 as needed BiPAP as necessary, for respiratory distress Titrate Fio2 to keep Spo2 > or = 90% DuoNebs and CPT as needed IS hourly while awake for pulmonary hygiene prn Out of bed to chair as tolerated Maintain aspiration precautions at all times CARDIOVASCULAR: Follow hemodynamics. Vital signs per facility protocol GI & NUTRITION: Continue nutritional support Aspirations precautions Prokinetic agents and laxatives as needed KIDNEYS & ELECTROLYTES: Strict monitoring of intake and output Daily weights Avoid nephrotoxic agents Monitor electrolytes and replace as needed Goal urine output of 30mL/hr or 0.5mL/kg/hr Medications to be dosed according to renal function. Avoid contrast if possible ENDOCRINE: Maintain blood glucose between 100-180 at all times. Insulin sliding scale for blood glucose management Hypoglycemia and hyperglycemia protocol in place INFECTIOUS DISEASE: Trend temperature, WBC and procalcitonin level Follow cultures, deescalate antibiotics as soon as possible. Panculture if new onset fever HEMATOLOGY & COAGULATION: Monitor H&H. Keep Hgb > 7 Transfuse 1 unit of PRBC for Hgb < 7 Transfuse 1 pack of platelets of platelets < 20, 000 Watch for any signs and symptoms of bleeding SKIN: Pressure ulcer prevention per facility protocol Specialty mattress as needed ORTHO/REHAB Continue PT/OT PRN: MEDICATIONS Tylenol 650 mg po every 4 hrs for fever zofran 4 mg IV every 6 hrs for n/v Hydralazine 5 mg IV every 4 hrs systolic pressure > 160 bowel regiment: lactulose 20 gm PO BID PRN constipation Supportive measures: Continue GI and DVT prophylaxis Disposition: Pending improvement in clinical condition. All questions answered time spent: > 35 min SHANTE COLBERT MD Sep 28, 2024 15:00
--- NOTE | 2024-09-28 15:04 | PN ---
NEPHROLOGY NOTE SUBJECTIVE: The patient has been evaluated and seen for dialysis and seen several times. The patient has renal failure, anemia, underlying weakness, shortness of breath, elevated troponin. Further cardiac workup is in progress. No other associated finding. No other aggravating or relieving factors. PHYSICAL EXAMINATION: VITAL SIGNS: Blood pressure has been 118/70, respiratory rate is 18, afebrile. HEENT: Head is atraumatic, normocephalic. Pupils are round and reactive. Sclerae are anicteric. Conjunctivae not pale. Oral mucosa is not dry. NECK: Without masses or bruits. Thyroid is palpable. Neck has no bruits. CHEST: Shows . Overall status remains guarded. PROBLEMS: Renal failure, anemia, multiple other comorbidities. PLAN: To continue monitoring of renal function. Continue monitoring of electrolytes. Intake, output, weight will be monitored. Nonsteroidal drugs will be avoided. Dose of medicine to be adjusted. The patient has been evaluated and seen for dialysis multiple times. IV Dilaudid 0.5 q. 6 for pain. Seen several times today. Thank you for this patient. TID: [id number] RECEIPT: [id number]
[2024-09-28 16:00] VITALS: BP 139/70; PULSE 77; RESP 18; TEMP 98
[2024-09-28 20:00] VITALS: BP 173/76; PULSE 80; RESP 19; TEMP 98
[2024-09-29] VITALS (19 sets, daily range): BP systolic 132–171; BP diastolic 56–83; PULSE 78–90; RESP 16–20; TEMP 97.8–98.3; O2SAT 100
[2024-09-29 05:48] LABS: MEAN CORPUSCULAR HEMOGLOBIN 31.3 pg (27.0-33.0); MEAN CORPUSCULAR HGB CONC 34.2 g/dL (32.0-36.0); MEAN CORPUSCULAR VOLUME 91.4 fL (79-99); RED BLOOD CELL COUNT(AUTO) 3.39 MIL/uL (4.50-6.20); RED CELL DISTRIBUTION WIDTH 13.3 % (11.0-15.5); WHITE BLOOD COUNT (AUTO) 7.9 K/uL (4.8-10.8)
[2024-09-29 06:17] LABS: BILIRUBIN,TOTAL 0.4 mg/dL (0.2-1.0); MAGNESIUM 3.1 mg/dL (1.80-2.40); POTASSIUM 5.2 mmol/L (3.5-5.1); TOTAL PROTEIN, SERUM 7.2 g/dL (6.0-8.3)
[2024-09-29 06:18] LABS: CREATININE 10.2 mg/dL (0.5-1.3)
--- NOTE | 2024-09-29 13:44 | DS ---
Discharge Summary Hospital Course Summary: This is a 39-year-old male with past medical history of hypertension, hyperlipidemia, ESRD, diabetes mellitus type 2 presented to the hospital secondary to generalized fatigue, shortness of breath. In the emergency room Labs were remarkable for white count of 9.1, hemoglobin was 10.3, platelet count was 256 K co, sodium was 134, potassium was 5.3, creatinine was 8.8, troponin was noted to be 654 Chest x-ray showed no acute infiltrates. Patient was admitted to the medical floor, nephrology consultation done, hemodialysis done without complication, tolerated well. During the course of the hospitalization CT of the abdomen was done, negative, no renal stones, no acute pathology or inflammation. Because of mildly elevated troponin, cardiology consultation requested, echocardiogram done, discussed with patient accounts clerk, no further intervention required, keep for the patient to be discharged home. To follow up in the office in one week. Web Application Dev Specialist(s): Cardiology and nephrology Assessment/Plan: Final diagnosis Hyperkalemia Troponin elevation likely type 2 WI from demand mismatch and ESRD status Shortness of breaths differential secondary to volume overload from ESRD ESRD on HD MWF Hypertension Hyperlipidemia Diabetes mellitus type 2 with associated hyperglycemia Obesity Discharge Instructions: The patient to follow with primary care physician, Nephrology and Cardiology as an outpatient in one week, to return to the hospital if his condition changes. Patient agreed with the plan and understood the information provided. Home Medications: Active Scripts Nitroglycerin (Nitroglycerin) 0.4 Mg Tab.subl, 1 TAB SL AD for chest pain, #25 TAB 1 Refill 1st sign of attack; may repeat every 5 mins; if pain persists after 3 in 15 min, medical attention is recommended Prov:SHANTE COLBERT MD 09/28/24 Aspirin (ASPIRIN 81MG CHEW TAB) 81 Mg Tab.chew, 81 MG PO DAILY for 30 Days, #30 TAB.CHEW 1 Refill Prov:SHANTE COLBERT MD 09/28/24 Reported Medications Cholecalciferol (Vitamin D3) (Vitamin D3) 50 Mcg (2000 Unit) Capsule, 50 MCG PO AD, CAP 09/26/24 Hydrochlorothiazide (Hydrochlorothiazide) 25 Mg Tablet, 25 MG PO DAILY, TAB 09/26/24 Vitamin E Mixed (Vitamin E) 400 Unit Capsule, 400 UNIT PO DAILY, CAP 06/05/24 Ferric Citrate (Ferric Citrate) 210 Mg Iron Tablet, 1 TAB PO TIDMEALS for 30 Days, #180 TAB 0 Refills 06/05/24 Levothyroxine Sodium (Levothyroxine) 112 Mcg Capsule, 1 CAP PO DAILY for 30 Days, #30 CAP 0 Refills 06/05/24 Carvedilol (Carvedilol) 12.5 Mg Tablet, 1 TAB PO BID for 30 Days, #60 TAB 0 Refills 06/05/24 Hydralazine HCl (Hydralazine HCl) 25 Mg Tablet, 1 TAB PO TID for 30 Days, #90 TAB 0 Refills 06/05/24 Nifedipine (Nifedipine ER) 30 Mg Tab.er.24, 1 TAB PO DAILY for 30 Days, #30 TAB 0 Refills 06/05/24 Sucroferric Oxyhydroxide (Velphoro) 500 Mg Iron Tab.chew, 1 TAB PO TID for 30 Days, #90 TAB 0 Refills 06/05/24 Folic Acid/Vitamin B Comp W-C (Aura-Kaz Tablet) 0.8 Mg Tablet, 1 TAB PO DAILY for 30 Days, #30 TAB 0 Refills 06/05/24 Calcitriol (Calcitriol) 0.25 Mcg Capsule, 0.25 MCG PO DAILY, CAP 06/05/24 Rosuvastatin Calcium (Rosuvastatin Calcium) 40 Mg Tablet, 1 TAB PO HS for high cholesterol for 30 Days, #30 TAB 0 Refills 06/05/24 Insulin Glargine,Hum.rec.anlog (Lantus) 100 Unit/Ml Inj, 15 UNITS SQ HS, ML 06/05/24 Insulin Glargine,Hum.rec.anlog (Lantus) 100 Unit/Ml Inj, 15 UNITS SQ NOON, ML 06/05/24 Insulin Aspart (Insulin Aspart Flexpen) 100 Unit/Ml (3 Ml) Insuln.pen, 30 UNIT SQ TIDAC, SYRINGE 06/05/24 Discontinued Reported Medications Prednisolone Acetate/Pf (Prednisolone Acet 1% Eye Drop) 1 % Drops.susp, 1 DROP OD BID for 30 Days, #5 ML 0 Refills 06/05/24 Cholecalciferol (Vitamin D3) (Vitamin D3) 25 Mcg (1000 Unit) Tablet, 1 TAB PO DAILY for 30 Days, #30 TAB 0 Refills 06/05/24 Benzonatate (Benzonatate) 200 Mg Capsule, 100 MG PO DAILY PRN for COUGH/COLD SYMPTOMS, CAP 06/05/24 New Medications: Nitroglycerin (Nitroglycerin) 0.4 Mg Tab.subl 1 TAB SL AD for chest pain, #25 TAB 1 Refill 1st sign of attack; may repeat every 5 mins; if pain persists after 3 in 15 min, medical attention is recommended Aspirin (Aspirin 81MG Chew Tab) 81 Mg Tab.chew 81 MG PO DAILY for 30 Days, #30 TAB.CHEW 1 Refill Continued Medications: Calcitriol (Calcitriol) 0.25 Mcg Capsule 0.25 MCG PO DAILY, CAP Carvedilol (Carvedilol) 12.5 Mg Tablet 1 TAB PO BID for 30 Days, #60 TAB 0 Refills Cholecalciferol (Vitamin D3) (Vitamin D3) 50 Mcg (2000 Unit) Capsule 50 MCG PO AD, CAP Ferric Citrate (Ferric Citrate) 210 Mg Iron Tablet 1 TAB PO TIDMEALS for 30 Days, #180 TAB 0 Refills Folic Acid/Vitamin B Comp W-C (Aura-Kaz Tablet) 0.8 Mg Tablet 1 TAB PO DAILY for 30 Days, #30 TAB 0 Refills Hydralazine HCl (Hydralazine HCl) 25 Mg Tablet 1 TAB PO TID for 30 Days, #90 TAB 0 Refills Hydrochlorothiazide (Hydrochlorothiazide) 25 Mg Tablet 25 MG PO DAILY, TAB Insulin Aspart (Insulin Aspart Flexpen) 100 Unit/Ml (3 Ml) Insuln.pen 30 UNIT SQ TIDAC, SYRINGE Insulin Glargine,Hum.rec.anlog (Lantus) 100 Unit/Ml Inj 15 UNITS SQ NOON, ML Insulin Glargine,Hum.rec.anlog (Lantus) 100 Unit/Ml Inj 15 UNITS SQ HS, ML Levothyroxine Sodium (Levothyroxine) 112 Mcg Capsule 1 CAP PO DAILY for 30 Days, #30 CAP 0 Refills Nifedipine (Nifedipine ER) 30 Mg Tab.er.24 1 TAB PO DAILY for 30 Days, #30 TAB 0 Refills Rosuvastatin Calcium (Rosuvastatin Calcium) 40 Mg Tablet 1 TAB PO HS for high cholesterol for 30 Days, #30 TAB 0 Refills Sucroferric Oxyhydroxide (Velphoro) 500 Mg Iron Tab.chew 1 TAB PO TID for 30 Days, #90 TAB 0 Refills Vitamin E Mixed (Vitamin E) 400 Unit Capsule 400 UNIT PO DAILY, CAP Time spent arranging discharge: 31-60 minutes SHANTE COLBERT MD Sep 29, 2024 13:44
--- NOTE | 2024-09-29 15:39 | HMCSR ---
APPROVED REPORT EXAM: Two-dimensional and M-mode echocardiogram with Doppler and color Doppler. INDICATION ICD: Troponin elevation 2D Dimensions RVDd4.8 cmLVEF(%)47.0 (>50%)LVED Vol(simp.)153.9 mL IVSd1.4 (0.7-1.1cm)FS(%)24 %LVES Vol(simp.)90.7 mL LVDd5.9 (3.8-5.6cm)LA (2D)4.9 (1.6-4.0cm)LVEF(%, simp.)43 % PWd1.3 (0.7-1.1cm)Ao Root(2D)3.1 (2.0-3.7cm)LA ESV INDEX (BP)43.79 mL/m2 IVSs1.8 cmIVC diam1.3 cm LVDs4.5 (2.5-4.0cm) PWs2.1 cm Deformation Strain Apical 4-12.0 % Apical 2-12.0 % Apical 3-11.0 % Global Strain-12.0 % Aortic Valve AoV Vmax1.0 m/Cristi Peak GR3.7 mmHgLVOT Vmax1.1 m/s AoV VTI0.2 mAo Mean GR2.2 mmHgLVOT VTI0.23 m Mitral Valve MV E Mhcq298.2 cm/sDECEL Kdai876 ms MV A Vmax80.1 cm/sP 1/2 T42 ms E/A ratio1.4MVA (PHT)5.2 cm2 TDI E/E' Ruqauv96.4E/E' Ywgjjdh39.0 Medial E' Peak V6.00 cm/sLateral E' Peak V5.00 cm/s Tricuspid Valve RAP (EST) 8 mmHgRVSP8.0 mmHg Left Ventricle The left ventricle is mildly dilated. Normal wall motion There is moderate left ventricular wall thic kness. LVEF is 55%. Grade 2 diastolic dysfunction Right Ventricle The right ventricle is moderately dilated. The right ventricular systolic function is normal. Atria The left atrium is moderately dilated. The right atrium size is moderately dilated. Aortic Valve The aortic valve is normal in structure. No aortic regurgitation is present. There is no aortic valvu lar stenosis. Mitral Valve The mitral valve is normal in structure. There is trace mitral valve regurgitation noted. There is no mitral valve stenosis. Tricuspid Valve The tricuspid valve is normal in structure. There is no tricuspid valve regurgitation noted. Pulmonic Valve The pulmonary valve is normal in structure. There is no pulmonic valvular regurgitation. Great Vessels The aortic root is normal in size. The IVC is normal in size and collapses >50% with inspiration. Pericardium There is no pericardial effusion. Other Information Quality : Adequate Conclusion LVEF is 55%. There is moderate left ventricular wall thickness. The left ventricle is mildly dilated. Normal wall motion Grade 2 diastolic dysfunction The right ventricle is moderately dilated. The left atrium is moderately dilated. The right atrium size is moderately dilated. There is no pericardial effusion. Study quality was adequate
--- NOTE | 2024-09-29 16:51 | NUR ---
DC INSTRUCTIONS PROVIDED TO PATIENT , PATIENT VERBALIZED UNDERSTANDING
== END 2024-09-29 13:45 | disposition home or self-care (01) | DRG 682 ==
LOC: EDH 10:23 → EDHIP 12:19 → 4CH 21:46
PROVIDERS: ADMIT Internal Medicine; ATTEND Internal Medicine
PROC: 5A1D70Z Performance of Urinary Filtration, Intermittent, Less than 6 Hours Per Day (ICD-10-PCS; principal; 2024-09-26)
PROC: 5A1D70Z Performance of Urinary Filtration, Intermittent, Less than 6 Hours Per Day (ICD-10-PCS; 2024-09-27)
PROC: 5A1D70Z Performance of Urinary Filtration, Intermittent, Less than 6 Hours Per Day (ICD-10-PCS; 2024-09-29)
DX: I12.0 Hypertensive chronic kidney disease with stage 5 chronic kidney disease or end stage renal disease (principal); I21.A1 Myocardial infarction type 2; J96.01 Acute respiratory failure with hypoxia; N18.6 End stage renal disease; Z68.41 Body mass index [BMI] 40.0-44.9, adult; D64.9 Anemia, unspecified; E03.9 Hypothyroidism, unspecified; E11.65 Type 2 diabetes mellitus with hyperglycemia; E11.22 Type 2 diabetes mellitus with diabetic chronic kidney disease; K59.00 Constipation, unspecified; Z20.822 Contact with and (suspected) exposure to COVID-19; E78.5 Hyperlipidemia, unspecified; E66.9 Obesity, unspecified; E87.5 Hyperkalemia; Z99.2 Dependence on renal dialysis; Z90.49 Acquired absence of other specified parts of digestive tract; Z79.899 Other long term (current) drug therapy; Z79.4 Long term (current) use of insulin; Z79.01 Long term (current) use of anticoagulants; Z88.6 Allergy status to analgesic agent; Z79.52 Long term (current) use of systemic steroids; Z79.82 Long term (current) use of aspirin
CPT/HCPCS: 36415; 71045; 74176; 80048; 80053; 80076; 82550; 82948; 83036; 83735; 83880; 84100; 84443; 84484; 85025; 85027; 87635; 87804; 90935; 93005; 93306; 93356; 94640; 99291; G0378; J1644; J1815

== ENCOUNTER 2025-07-14 23:38 | Emergency (ER) | payer BC ==
[~2025-07-14] VITALS: Ht 167.6 cm; Wt 115.7 kg
[~2025-07-14 23:38] MED LIST changes: +ASPI-1005 PO; -BENZ200C53 PO; -CHOL100020 PO; +CHOL2000 PO; +HYDR25TA PO; -LEVO112C4 PO; +LEVO112C5 PO; +NITR0.4T50 SL; -PRED5DRO25 OD
[2025-07-14 23:40] VITALS: TEMP 96.3
--- NOTE | 2025-07-14 23:57 | EKG ---
[facility] Test Date: 2025-07-14 Test Time: 23:54:44 Pat Name: WES HERNANDEZ Department: ED Room: Gender: M Copywriter: [id number] : 1985 Requested By: LEN CURIEL Order Number: [id number] Reading MD: Lanie Vee Measurements Intervals Brooks Rate: 84 P: 50 NC: 162 QRS: 25 QRSD: 98 T: 133 QT: 429 QTc: 507 Interpretive Statements Sinus rhythm Probable left atrial enlargement Abnormal T, consider ischemia, lateral leads Prolonged QT interval Compared to ECG 09/26/2024 10:50:43 T-wave abnormality now present Possible ischemia now present Myocardial infarct finding now present Prolonged QT interval now present Right-axis deviation no longer present ST (T wave) deviation still present Electronically Signed On 07-16-2025 09:02:06 TRAFFIC MONITOR SPECIALIST by Lanie Vee Please click the below link to view image of tracing.
[2025-07-15 00:27] LABS: IMMATURE GRANULOCYTE ABSOLUTE 0.02 K/uL (0-1); NUCLEATED RED BLOOD CELLS 0.0 % (0.0-0.19); PLATELET COUNT (AUTO) 221 K/uL (130-400); RED BLOOD CELL COUNT(AUTO) 3.29 MIL/uL (4.50-6.20); RED CELL DISTRIBUTION WIDTH 13.3 % (11.0-15.5); WHITE BLOOD COUNT (AUTO) 9.7 K/uL (4.8-10.8)
--- NOTE | 2025-07-15 00:31 | NUR ---
PATIENT STAtes does not make urine.
[2025-07-15 00:35] LABS: ASPARTATE AMINOTRANSFERASE 18.0 U/L (10-37); GLOMERULAR FILTR. RATE CALC 8.0 mL/min (>90); GLUCOSE,RANDOM 138.0 mg/dL (70-105); SODIUM SERUM 139.0 mmol/L (136-145); TOTAL PROTEIN, SERUM 7.4 g/dL (6.0-8.3); UREA NITROGEN, BLOOD 49.0 mg/dL (7-18)
[2025-07-15 00:37] LABS: CREATININE 8.1 mg/dL (0.5-1.3)
[2025-07-15] MEDS: LIDOCAINE HCL 2% VISCOUS 15 ML UDCUP PO ONE (01:29)
[2025-07-15] MEDS: MAG/ALUM/SIMETH 30 ML UDCUP PO ONE (01:29)
--- NOTE | 2025-07-15 01:34 | ERN ---
General Chief Complaint: Abdominal Pain Stated Complaint: ABD PAIN, COUGH Time Seen by MD: 23:45 Source: patient History of Present Illness Initial Comments Patient is a 40-year-old gentleman coming in with multiple complaints. Per patient he has been having epigastric pain. Along with the epigastric pain he states he feels mild shortness of breath. He does has a history of end-stage renal disease. Allergies: Coded Allergies: atorvastatin (Verified Allergy, Unknown, 07/22/16) latex (Unverified Allergy, Unknown, 07/14/25) metformin (Verified Allergy, Unknown, 07/22/16) Home Meds Active Scripts Nitroglycerin (Nitroglycerin) 0.4 Mg Tab.subl, 1 TAB SL AD for chest pain, #25 TAB 1 Refill 1st sign of attack; may repeat every 5 mins; if pain persists after 3 in 15 min, medical attention is recommended Prov:SHANTE COLBERT MD 09/28/24 Aspirin (ASPIRIN 81MG CHEW TAB) 81 Mg Tab.chew, 81 MG PO DAILY for 30 Days, #30 TAB.CHEW 1 Refill Prov:SHANTE COLBERT MD 09/28/24 Reported Medications Cholecalciferol (Vitamin D3) (Vitamin D3) 50 Mcg (2000 Unit) Capsule, 50 MCG PO AD, CAP 09/26/24 Hydrochlorothiazide (Hydrochlorothiazide) 25 Mg Tablet, 25 MG PO DAILY, TAB 09/26/24 Vitamin E Mixed (Vitamin E) 400 Unit Capsule, 400 UNIT PO DAILY, CAP 06/05/24 Ferric Citrate (Ferric Citrate) 210 Mg Iron Tablet, 1 TAB PO TIDMEALS for 30 Days, #180 TAB 0 Refills 06/05/24 Levothyroxine Sodium (Levothyroxine) 112 Mcg Capsule, 1 CAP PO DAILY for 30 Days, #30 CAP 0 Refills 06/05/24 Carvedilol (Carvedilol) 12.5 Mg Tablet, 1 TAB PO BID for 30 Days, #60 TAB 0 Refills 06/05/24 Hydralazine HCl (Hydralazine HCl) 25 Mg Tablet, 1 TAB PO TID for 30 Days, #90 TAB 0 Refills 06/05/24 Nifedipine (Nifedipine ER) 30 Mg Tab.er.24, 1 TAB PO DAILY for 30 Days, #30 TAB 0 Refills 06/05/24 Sucroferric Oxyhydroxide (Velphoro) 500 Mg Iron Tab.chew, 1 TAB PO TID for 30 Days, #90 TAB 0 Refills 06/05/24 Folic Acid/Vitamin B Comp W-C (Aura-Kaz Tablet) 0.8 Mg Tablet, 1 TAB PO DAILY for 30 Days, #30 TAB 0 Refills 06/05/24 Calcitriol (Calcitriol) 0.25 Mcg Capsule, 0.25 MCG PO DAILY, CAP 06/05/24 Rosuvastatin Calcium (Rosuvastatin Calcium) 40 Mg Tablet, 1 TAB PO HS for high cholesterol for 30 Days, #30 TAB 0 Refills 06/05/24 Insulin Glargine,Hum.rec.anlog (Lantus) 100 Unit/Ml Inj, 15 UNITS SQ HS, ML 06/05/24 Insulin Glargine,Hum.rec.anlog (Lantus) 100 Unit/Ml Inj, 15 UNITS SQ NOON, ML 06/05/24 Insulin Aspart (Insulin Aspart Flexpen) 100 Unit/Ml (3 Ml) Insuln.pen, 30 UNIT SQ TIDAC, SYRINGE 06/05/24 Past Medical History Past Medical History: Arthritis, Diabetes-Type II, High Cholesterol, Hypertension, Renal Disese, Renal Failure Past Surgical History: Appendectomy, Other, LAVA ROS Dictation CONSTITUTIONAL: No chills, no fever, no weakness, no diaphoresis, no malaise. HEAD/FACE: No signs of trauma. EENT: No eye pain, no blurred vision, no tearing, no double vision, no ear pain, no ear discharge, no nose pain, no nasal congestion, no throat pain, no throat swelling, no mouth pain. RESPIRATORY: No cough, no orthopnea, SOB, no stridor, no wheezing. CARDIOVASCULAR: No chest pain, no edema, no palpitations, no syncope. GASTROINTESTINAL/ABDOMINAL: abdominal pain, no constipation, no diarrhea, no nausea, no vomiting. GENITOURINARY: No abnormal discharge, no dysuria, no frequent urination, no hematuria. No complaints of pain in the genitals. MUSCULOSKELETAL: No back pain, no gout, no joint pain, no joint swelling, no muscle pain, no muscle stiffness, no neck pain. INTEGUMENTARY: No change in color, no change in hair/nails, no dryness, no lesion, no lumps, no rash. NEUROLOGICAL/PSYCH: No anxiety, not depressed, no emotional problem, no headache, no numbness, no pre-existing deficit, no history of seizures, no tremors, no weakness. HEMATOLOGIC/LYMPHATIC: Not anemic, no history of blood clots, no apparent bleeding, no bruising, glands not swollen. All Systems Negative, Except as Noted. Physical Exam Physical Exam Dictation VITAL SIGNS: Reviewed. GENERAL APPEARANCE: Alert, oriented x3, no acute distress, obese. HEAD AND FACE: Non-traumatic. EYES: PERRL, pink conjunctivas, eyelid no trauma, anterior chamber clear. EARS: Pinnas intact and no signs of trauma or erythema. Ear canals clear and no discharge. TMs no erythema. NOSE: No discharge, no bleeding. OROPHARYNX: Mouth normal, teeth no caries, tongue pink. Pharynx clear, no erythema. Tonsils no exudates, no abscesses noted. Mucous membrane moist. NECK: Supple, non-tender, no thyromegaly, no masses, no JVD, no bruits. BREAST: Deferred. CHEST: No tenderness, no crepitus, no paradoxical movement, no retractions. LUNGS: Clear, well-ventilated, symmetric, no rales, no wheezing, no rhonchi, no stridor, good breath sounds bilaterally. HEART: Regular rate, regular rhythm, no murmur, no gallops. VASCULAR: No peripheral edema. ABDOMEN: Soft, positive bowel sounds, nondistended, no guarding, nontender, no rebound, no masses no hepatomegaly, no splenomegaly, no Castillo's sign, no hernias. RECTAL: Deferred. GENITAL: Deferred. NEUROLOGICAL: Normal speech, gross motor function intact, gross sensory function intact. MUSCULOSKELETAL: Neck nontender, full range of motion, back nontender, full range of motion. EXTREMITIES: Nontender, full range of motion. SKIN: Color pink, dry, no turgor, no rash, no lacerations, no abrasions, no contusions. LYMPHATICS: Deferred. Results Laboratory and Microbiology Lab and Micro Result Laboratory Tests Test 07/15/25 00:04 07/15/25 01:22 White Blood Count 9.7 K/uL (4.8-10.8) Red Blood Count 3.29 MIL/uL (4.50-6.20) L Hemoglobin 10.6 g/dL (14.0-18.0) L Hematocrit 31.5 % (42-54) L Mean Corpuscular Volume 95.7 fL (79-99) Mean Corpuscular Hemoglobin 32.2 pg (27.0-33.0) Mean Corpuscular Hemoglobin Concent 33.7 g/dL (32.0-36.0) Red Cell Distribution Width 13.3 % (11.0-15.5) Platelet Count 221 K/uL (130-400) Mean Platelet Volume 11.2 fL (7.5-10.5) H Immature Granulocyte % (Auto) 0.2 % (0-1) Neutrophils (%) (Auto) 75.1 % (40.0-77.0) Lymphocytes (%) (Auto) 8.1 % (21.0-51.0) L Monocytes (%) (Auto) 9.3 % (3.0-13.0) Eosinophils (%) (Auto) 6.4 % (0.0-8.0) Basophils (%) (Auto) 0.9 % (0.0-5.0) Neutrophils # (Auto) 7.3 K/uL (1.8-7.7) Lymphocytes # (Auto) 0.8 K/uL (1.0-4.8) L Monocytes # (Auto) 0.9 K/uL (0.1-1.0) Eosinophils # (Auto) 0.62 K/uL (0.00-0.70) Basophils # (Auto) 0.09 K/uL (0.00-0.20) Absolute Immature Granulocyte (auto 0.02 K/uL (0-1) Nucleated Red Blood Cells 0.0 % (0.0-0.19) White Cell Morphology Comment See comments Sodium Level 139 mmol/L (136-145) Potassium Level 4.4 mmol/L (3.5-5.1) Chloride Level 98 mmol/L (101-111) L Carbon Dioxide Level 27 mmol/L (21-32) Blood Urea Nitrogen 49 mg/dL (7-18) H Creatinine 8.1 mg/dL (0.5-1.3) *H Glomerular Filtration Rate Calc 8 mL/min (>90) Random Glucose 138 mg/dL (70-105) H Total Calcium 8.2 mg/dL (8.5-10.1) L Total Bilirubin 0.6 mg/dL (0.2-1.0) Aspartate Amino Transf (AST/SGOT) 18 U/L (10-37) Alanine Aminotransferase (ALT/SGPT) 31 U/L (12-78) Alkaline Phosphatase 58 U/L (50-136) Troponin I High Sensitivity 56 ng/L (4-75) 56 ng/L (4-75) Total Protein 7.4 g/dL (6.0-8.3) Albumin 3.3 g/dL (3.5-5.0) L Lipase 49 U/L (16-77) Labs Reviewed?: Yes EKG/XRAY/US/CT/MRI EKG Comment 07/14/2025 time 11:54 p.m. Ventricular rate 84 Sinus rhythm [place] [address] wave elevation or depression X-RAY Comment [id number] [facility] [address] [place] [address] IMAGING REPORT Signed PATIENT: WES HERNANDEZ MR#: [id number] : 1985 SEX: M AGE: 40 LOCATION: [facility] ORDER [id number] STATUS: [facility] REPORT#: [id number] SERVICE 2329 REASON: cp ORDERING PHYSICIAN: LEN CURIEL MD PROCEDURE: CXR1VW - CHEST 1VW EXAM: CR Chest, 1 view CLINICAL HISTORY: Chest pain. COMPARISON: Chest radiograph dated 09/26/2024. FINDINGS: The lungs show no infiltrates or other acute findings. No pleural effusion or pneumothorax. Stable borderline cardiomegaly. No acute osseous abnormality. IMPRESSION: Stable borderline cardiomegaly. No acute infiltrate, effusion, or pneumothorax. Compared to the prior study, there is no significant interval change. /[place] DICTATED BY: AGUSTIN LYNCH Jr., MD DATE: 07/15/25237 ELECTRONICALLY SIGNED BY: AGUSTIN LYNCH Jr., MD DATE: 07/15/25237 MDM MDM: Differential diagnosis: Gastroenteritis, end-stage renal disease on dialysis, GERD, pancreatitis, Rationale: Tests considered and ordered secondary to shared decision making include: Previous outside records reviewed: Old ER visits. Risk of complication and/or morbidity or mortality of patient management: None Medications-Per medication reconciliation Need for hospitalization: Patient does not meet criteria for hospitalization. Need for emergency major/minor surgery: No Patient is a 40-year-old gentleman coming in complaining of abdominal discomfort. Patient does has a history of end-stage renal disease. Laboratory workup within normal limits considering elevated creatinine due to end-stage renal disease. Patient received IV Protonix oral GI cocktail states his symptoms have improved. Patient will be discharged in stable condition with a diagnosis of gastroenteritis. Medication will be provided for symptomatic relief. P.o. challenge passed ED Course Orders Procedure Category Date Status Time Cbc With Differential LAB 07/14/25 Complete 23:49 Comprehensive LAB 07/14/25 Complete Metabolic Panel 23:49 Troponin I High LAB 07/14/25 Complete Sensitivity 23:49 12 Lead Ekg Tracing- EKG 07/14/25 Complete Technical 23:49 Chest 1vw RAD 07/14/25 Resulted 23:49 Lipase LAB 07/14/25 Complete 23:49 Influenza Type A & B, LAB 07/14/25 In Process Rapid 23:49 Pantoprazole 40mg Inj PHA 07/15/25 Complete (Protonix 40mg Inj 00:00 Troponin I High LAB 07/15/25 Complete Sensitivity 01:10 Lidocaine Hcl 2% PHA 07/15/25 Complete Viscous (Lidocaine Hcl 01:30 Mag/Alum/Simeth 30ml PHA 07/15/25 Complete (Maalox Plus 30ml) 01:30 Covid Rna Naat LAB 07/15/25 Logged 02:02 Current Medications Medications (Trade) Dose Ordered Sig/Kay Route PRN Reason Start Time Stop Time Status Last Admin Dose Admin Al Hydroxide/Mg Hydroxide (MAALox PLUS 30ML) 30 ml ONCE ONCE PO 07/15/25 01:30 07/15/25 01:31 DC 07/15/25 01:29 Lidocaine HCl (Lidocaine HCl 2% Viscous) 10 ml ONCE ONCE PO 07/15/25 01:30 07/15/25 01:31 DC 07/15/25 01:29 Pantoprazole Sodium (PROTonix 40MG INJ) 40 mg ONCE ONCE IVP 07/15/25 00:00 07/15/25 00:01 DC 07/15/25 00:39 Vital Signs Date Time Temp Pulse Resp B/P (MAP) Pulse Ox O2 Delivery O2 Flow Rate FiO2 07/15/25 01:53 86 18 170/84 95 Room Air* 0 21 07/15/25 00:53 83 18 170/83 100 Room Air* 0 21 07/14/25 23:40 96.3 90 20 186/81 99 Room Air DX & DISP Disposition: Discharge Departure Impression: Primary Impression: Gastroenteritis Additional Impression: End stage renal disease on dialysis Condition: Stable Scripts Pantoprazole Sodium (Protonix) 40 Mg Ectab 1 TAB PO DAILY for 30 Days, #30 TAB 0 Refills Prov: LEN CURIEL MD 07/15/25 Additional Instructions: FOLLOW-UP WITH PRIMARY CARE PROVIDER IN 1 TO 2 DAYS. TAKE MEDICATIONS DIRECTED HERE IN THE EMERGENCY ROOM. OKAY TO CONTINUE HOME MEDICATIONS UNLESS OTHERWISE DISCUSSED DURING YOUR VISIT IN THE EMERGENCY ROOM TODAY. RETURN TO YOUR NEAREST EMERGENCY ROOM IF SYMPTOMS WORSEN OR IF THERE IS NO IMPROVEMENT. CALL 911 IF YOU NEED IMMEDIATE ASSISTANCE. TAKE TYLENOL [id number] NEEDED AND IF NO CONTRAINDICATIONS ARE PRESENT. INCREASE ORAL HYDRATION. A WOUND CULTURE OR URINE CULTURE WAS ORDERED HERE IN THE EMERGENCY ROOM DEPARTMENT PLEASE FOLLOW-UP WITH PRIMARY CARE PROVIDER AND ADVISE THEM TO GET REPORTS FROM OUR FACILITY. IF YOU HAD ANY LOLITA WRAP/SPLINTS THAT WERE APPLIED HERE, PLEASE DO NOT REMOVE THEM UNTIL YOU SEE YOUR PRIMARY CARE OR SPECIALTY. Referrals: Referrals: TARAS PAINTER DO (PCP) Time of Disposition: 02:07 LEN CURILE MD Jul 15, 2025 01:34
--- NOTE | 2025-07-15 01:40 | HMCIMG ---
EXAM: CR Chest, 1 view CLINICAL HISTORY: Chest pain. COMPARISON: Chest radiograph dated 09/26/2024. FINDINGS: The lungs show no infiltrates or other acute findings. No pleural effusion or pneumothorax. Stable borderline cardiomegaly. No acute osseous abnormality. IMPRESSION: Stable borderline cardiomegaly. No acute infiltrate, effusion, or pneumothorax. Compared to the prior study, there is no significant interval change. /[place]
[2025-07-15 01:53] VITALS: BP 170/84; PULSE 86; RESP 18; O2SAT 95
[2025-07-15] MEDS ORDERED: PANT40TA55 PO (02:08)
[2025-07-15 02:21] LABS: SARS-CoV-2, RNA, NAAT NEGATIVE SARS CoV-2 (NEGATIVE)
[2025-07-15 02:22] LABS: INFLUENZA TYPE A Negative For Type A (NEGATIVE); INFLUENZA TYPE B Negative For Type B (NEGATIVE)
== END 2025-07-15 02:35 | disposition home or self-care (01) ==
LOC: EDH 23:38
DX: K52.9 Noninfective gastroenteritis and colitis, unspecified (principal); E11.22 Type 2 diabetes mellitus with diabetic chronic kidney disease; I12.0 Hypertensive chronic kidney disease with stage 5 chronic kidney disease or end stage renal disease; N18.6 End stage renal disease; E78.00 Pure hypercholesterolemia, unspecified; M19.90 Unspecified osteoarthritis, unspecified site; Z79.4 Long term (current) use of insulin; Z79.82 Long term (current) use of aspirin; Z79.899 Other long term (current) drug therapy; Z79.890 Hormone replacement therapy; Z90.49 Acquired absence of other specified parts of digestive tract; Z91.040 Latex allergy status; Z99.2 Dependence on renal dialysis; Z20.822 Contact with and (suspected) exposure to COVID-19
CPT/HCPCS: 99284; 71045; 87635; 84484 ×2; 80053; 83690; 85025; 87804 ×2; 36415; 93005; 96374; J2470